=== PATIENT | female | born 1950 | race Hispanic/Latino ===

== ENCOUNTER → 2018-05-15 | Outpatient (CLI) | payer MEDICARE | END | disposition home or self-care (01) | LOC: OIH 10:56 | PROVIDERS: ATTEND Family Medicine | DX: M79.644 Pain in right finger(s) (principal) | CPT/HCPCS: 73130 ==

== ENCOUNTER → 2018-05-21 | Outpatient (CLI) | payer MEDICARE | END | disposition home or self-care (01) | LOC: RAH 09:40 | PROVIDERS: ATTEND Family Medicine | DX: R22.31 Localized swelling, mass and lump, right upper limb (principal) | CPT/HCPCS: 76882 ==

== ENCOUNTER → 2018-09-12 | Outpatient (CLI) | payer MEDICARE | END | disposition home or self-care (01) | LOC: RAH 08:59 | PROVIDERS: ATTEND Family Medicine | DX: M75.102 Unspecified rotator cuff tear or rupture of left shoulder, not specified as traumatic (principal); M25.412 Effusion, left shoulder; M19.012 Primary osteoarthritis, left shoulder | CPT/HCPCS: 73221 ==

== ENCOUNTER → 2020-04-05 | Outpatient (CLI) | payer MEDICARE | END | disposition home or self-care (01) | LOC: SHCH 10:17 | PROVIDERS: ATTEND Internal Medicine Cardiovascular Disease | DX: I87.2 Venous insufficiency (chronic) (peripheral) (principal); R60.9 Edema, unspecified | CPT/HCPCS: 93971 ==

== ENCOUNTER → 2020-06-20 | Outpatient (CLI) | payer MEDICARE | END | disposition home or self-care (01) | LOC: SHCH 14:02 | PROVIDERS: ATTEND Internal Medicine Cardiovascular Disease | DX: Z09 Encounter for follow-up examination after completed treatment for conditions other than malignant neoplasm (principal); I82.812 Embolism and thrombosis of superficial veins of left lower extremity; I87.2 Venous insufficiency (chronic) (peripheral) | CPT/HCPCS: 93971 ==

== ENCOUNTER → 2020-10-07 | Outpatient (CLI) | payer MEDICARE | END | disposition home or self-care (01) | LOC: RAH 10:44 | PROVIDERS: ATTEND Family Medicine | DX: K30 Functional dyspepsia (principal); R68.81 Early satiety; R14.0 Abdominal distension (gaseous) | CPT/HCPCS: 78264; A9541 ==

== ENCOUNTER → 2024-07-01 | Outpatient (CLI) | payer OTHER ==
--- NOTE | 2024-07-01 15:00 | HMCIMG ---
CHEST 2VWS HISTORY: Cough COMPARISON: None FINDINGS: Frontal and lateral projections of the chest were obtained. There is no acute pulmonary infiltrates or failure. The heart is not enlarged. Aortic calcifications are seen. Degenerative changes are seen of the thoracolumbar spine. IMPRESSION: 1. No acute pulmonary infiltrates.
== END | disposition home or self-care (01) ==
LOC: RAH 11:12
PROVIDERS: ATTEND Family Medicine
DX: R05.9 Cough, unspecified (principal); M47.815 Spondylosis without myelopathy or radiculopathy, thoracolumbar region; I70.0 Atherosclerosis of aorta
CPT/HCPCS: 71046

== ENCOUNTER 2025-05-21 06:45 | Day surgery (SDC) | payer OTHER, MEDICARE ==
[2025-05-19 13:47] LABS: IMMATURE GRANULOCYTE ABSOLUTE 0.04 K/uL (0-1); NUCLEATED RED BLOOD CELLS 0.0 % (0.0-0.19); PLATELET COUNT (AUTO) 243 K/uL (130-400); RED BLOOD CELL COUNT(AUTO) 3.89 MIL/uL (4.00-5.50); RED CELL DISTRIBUTION WIDTH 12.4 % (11.0-15.5); WHITE BLOOD COUNT (AUTO) 8.4 K/uL (4.8-10.8)
[2025-05-19 13:58] VITALS: BP 142/88; PULSE 98; RESP 16; TEMP 97.4
[2025-05-19 14:00] LABS: CREATININE 1.1 mg/dL (0.5-1.0); GLOMERULAR FILTR. RATE CALC 53.0 mL/min (>90); GLUCOSE,RANDOM 174.0 mg/dL (70-105); SODIUM SERUM 140.0 mmol/L (136-145); UREA NITROGEN, BLOOD 23.0 mg/dL (7-18)
[2025-05-19 14:07] LABS: INR 1.13 (0.85-1.15)
[2025-05-21] VITALS (9 sets, daily range): BP systolic 108–132; BP diastolic 56–77; PULSE 57–116; RESP 14–16; TEMP 97.7–97.8
[~2025-05-21] VITALS: Ht 157.5 cm; Wt 77.9 kg
[~2025-05-21 06:45] MED LIST: APIX5TAB PO; ATOR10 PO; GABA-529 PO; LEVO112C5 PO; LISI20TA24 PO; METF-446 PO; METO-408 PO; VENL-53 PO
[2025-05-21] MEDS ORDERED: MIDAZOLAM HCL 1 MG/ML 2ML VIAL IVP ONE (07:00)
--- NOTE | 2025-05-21 08:47 | NUR ---
PT SYNCHRONIZED CARDIOVERTED [address] MARY CANTU. PT DID CONVERT TO NSR.
--- NOTE | 2025-05-21 08:55 | NUR ---
PT AWAKE SPEAKING WITH STAFF VSS NAD
[2025-05-21] MEDS: MIDAZOLAM HCL 1 MG/ML 2ML VIAL IVP ONE ×2 (09:01)
--- NOTE | 2025-05-21 09:02 | PRN ---
Procedure Note INDICATION FOR PROCEDURE: [] Hypercoagulable state Symptomatic atrial fibrillation with rapid ventricular response PROCEDURE: [] Conscious sedation Direct current cardioversion x1 at 150 joules synchronized DATE OF PROCEDURE: May 21, 2025 MANAGER SECURITY AND SAFETY: Mehul Ritter.A.CJasbirCJasbir PROCEDURE NOTE: [] After adequate sedation was given to include 3 mg of Versed and 75 mcg of fentanyl synchronized direct current cardioversion was performed with 150 joules of synchronized electricity which was successful. Patient was shocked 1 time and sinus rhythm was restored. FINDINGS: [] Successful direct current cardioversion Mormon and maintenance of normal sinus rhythm PLAN: [] Continue with Toprol-XL 25 mg twice daily Continue with Eliquis 5 mg twice daily for a minimum of 4 weeks Follow up with Dr. Fierro in 1-2 weeks No driving or operating heavy machinery for 24 hours MEHUL FIERRO MD May 21, 2025 09:02
--- NOTE | 2025-05-21 09:06 | EKG ---
[facility] Test Date: 2025-05-21 Test Time: 08:50:30 Pat Name: LIBRA DE LA CRUZ Department: [facility] Room: [facility] Gender: F Engineering Project Manager: [phone] : 1950 Requested By: MEHUL FIERRO Order Number: [id number] Reading MD: Mehul Fierro Measurements Intervals [place] Rate: 59 P: 68 TX: 170 QRS: 69 QRSD: 84 T: 47 QT: 414 QTc: 409 Interpretive Statements Sinus bradycardia with premature atrial complexes No previous ECG available for comparison Electronically Signed On 05-21-2025 11:28:54 MORTISING MACHINE OPERATOR by Mehul Fierro Please click the below link to view image of tracing.
--- NOTE | 2025-05-21 10:25 | NUR ---
PT AND CHILDREN GIVEN VERBAL AND WRITTEN DISCHARGE INSTRUCTIONS IV REMOVED SITE ASYMPTOMATIC.
--- NOTE | 2025-05-21 18:44 | EKG ---
[facility] Test Date: 2025-05-21 Test Time: 07:03:10 Pat Name: LIBRA DE LA CRUZ Department: [facility] Room: Gender: F Order Management Specialist: [id number] : 1950 Requested By: MEHUL FIERRO Order Number: [id number] Reading MD: Mehul Fierro Measurements Intervals [place] Rate: 129 P: 0 MI: 0 QRS: 76 QRSD: 82 T: 12 QT: 316 QTc: 462 Interpretive Statements Atrial fibrillation with rapid ventricular response with premature ventricular or aberrantly conducted complexes Low voltage QRS Nonspecific ST abnormality No previous ECG available for comparison Electronically Signed On 05-23-2025 09:27:58 PROCESS TRAINER by Mehul Fierro Please click the below link to view image of tracing.
== END 2025-05-21 10:35 | disposition home or self-care (01) ==
LOC: DAH 06:45
PROVIDERS: ATTEND Internal Medicine Cardiovascular Disease
DX: I48.0 Paroxysmal atrial fibrillation (principal); I48.19 Other persistent atrial fibrillation; I10 Essential (primary) hypertension; E11.9 Type 2 diabetes mellitus without complications; E78.5 Hyperlipidemia, unspecified; F41.9 Anxiety disorder, unspecified; F32.A Depression, unspecified; E03.9 Hypothyroidism, unspecified; I87.2 Venous insufficiency (chronic) (peripheral); I87.1 Compression of vein; Z79.01 Long term (current) use of anticoagulants; Z90.49 Acquired absence of other specified parts of digestive tract; Z79.899 Other long term (current) drug therapy
CPT/HCPCS: 80048; 85025; 85610; 85730; 36415; 92960; 99152; 93005 ×2; J3010; J2250 ×2; A4215; A4222; A4221; A4663; A4216; A4606; A4223 ×3; G0500

== ENCOUNTER 2025-05-24 12:49 | Inpatient (IN) | payer OTHER, MEDICARE ==
[2025-05-24] VITALS (10 sets, daily range): BP systolic 134–156; BP diastolic 79–89; PULSE 72–114; RESP 18–38; TEMP 98.1–98.8; O2SAT 98–100
[~2025-05-24] VITALS: Ht 157.5 cm; Wt 76.7 kg
--- NOTE | 2025-05-24 13:00 | ERN ---
ED Note History of Present Illness Stated Complaint: CHEST PAIN PHYSICIAN ADVISOR TO ED Chief Complaint: Chest Pain Time Seen by MD: 12:58 Dictation: PATIENT IS A 74-YEAR-OLD FEMALE COMING IN VIA EMS WITH COMPLAINTS OF SUBSTERNAL CHEST PAIN NONRADIATING ONSET WAS 1 HOUR PRIOR TO ARRIVAL. SHE HAS HAD NO FEVER NO PILL SHE HAS A SAYS SHE HAS A SHORT OF BREATH AND WAS JUST DISCHARGED FROM [facility] FOR ATRIAL FIBRILLATION WITH A RVR. SHE IS CURRENTLY MILDLY TACHYPNEIC FEVER 100.2. EMS STATES THEY GAVE HER ASPIRIN AND NITRO H OWEVER PAIN WAS NOT RESOLVED. Allergies: Coded Allergies: No Known Drug Allergies (Unverified Allergy, Unknown, 05/20/25) Home Meds Reported Medications Levothyroxine Sodium (Levothyroxine) 112 Mcg Capsule, 112 MCG PO ACBKFST, CAP 05/20/25 Venlafaxine HCl (Venlafaxine HCl) 37.5 Mg Tablet, 37.5 MG PO HS, TAB 05/20/25 Gabapentin (Gabapentin) 100 Mg Capsule, 100 MG PO HS, CAP 05/20/25 Lisinopril (Lisinopril) 20 Mg Tablet, 20 MG PO DAILY, TAB 05/20/25 Metformin HCl (Metformin HCl) 1,000 Mg Tablet, 1000 MG PO BID, TAB 05/20/25 Metoprolol Succinate (Metoprolol Succinate) 25 Mg Tab.er.24h, 25 MG PO BID, TAB 05/20/25 Atorvastatin Calcium (LIPITOR) 20 Mg Tab, 20 MG PO DAILY, TAB 05/20/25 Apixaban (Eliquis) 5 Mg Tablet, 5 MG PO BID, TAB 05/20/25 Past Medical History History: Not Applicable RN Note Reviewed/Agreed w/PFSH: Yes Review of System Dictation CONSTITUTIONAL: NEGATIVE EXCEPT FOR HPI HEAD/FACE: NEGATIVE EXCEPT FOR HPI EENT: NEGATIVE EXCEPT FOR HPI RESPIRATORY: NEGATIVE EXCEPT FOR HPI SUBSTERNAL CHEST PAIN PRESSURE GASTROINTESTINAL/ABDOMINAL: NEGATIVE EXCEPT FOR HPI GENITOURINARY: NEGATIVE EXCEPT FOR HPI MUSCULOSKELETAL: NEGATIVE EXCEPT FOR HPI INTEGUMENTARY: NEGATIVE EXCEPT FOR HPI NEUROLOGICAL/PSYCH: NEGATIVE EXCEPT FOR HPI HEMATOLOGIC/LYMPHATIC: NEGATIVE EXCEPT FOR HPI ALL SYSTEMS NEGATIVE, EXCEPT NOTED ABOVE. 13 POINT REVIEW OF SYSTEMS ASSESSED AND ALL NEGATIVE EXCEPT FOR ABOVE. Initial Vital Sign VS Vital Signs Date Time Temp Pulse Resp B/P (MAP) Pulse Ox O2 Delivery O2 Flow Rate FiO2 05/24/25 12:54 100.2 71 24 126/78 98 Nasal Cannula 2.0 05/24/25 13:25 28 Physical Exam Dictation VITAL SIGNS REVIEWED GENERAL APPEARANCE: ALERT, ORIENTED X 3, NO ACUTE DISTRESS, WELL DEVELOPED, NOURISHED. NO PAIN AT THIS TIME. HEAD AND FACE: NON-TRAUMATIC. EYES: PERRL, PINK CONJUNCTIVAS, EYELID NO TRAUMA, ANTERIOR CHAMBER WITH ARCUS SENILIS. EARS: PINNAS INTACT AND NO SIGNS OF TRAUMA OR ERYTHEMA EAR CANALS CLEAR AND NO DISCHARGE TM NO ERYTHEMA NOSE: NO DISCHARGE, NO BLEEDING. OROPHARYNX: MOUTH NORMAL, TONGUE PINK, PHARYNX CLEAR,NO ERYTHEMA, TONSILS NO EXUDATES, NO ABSCESSES NOTED, MUCOUS MEMBRANE MOIST NECK: SUPPLE, NON-TENDER, NO THYROMEGALY, NO MASSES, NO JVD, NO BRUITS BREAST:DEFERRED CHEST:NO TENDERNESS, NO CREPITUS, NO PARADOXICAL MOVEMENT, NO RETRACTIONS LUNGS:CLEAR, WELL-VENTILATED, SYMMETRIC, NO RALES, NO WHEEZING, NO RHONCHI, NO STRIDOR, GOOD BREATH SOUNDS BILATERALLY HEART: REGULAR RATE, REGULAR RHYTHM, NO MURMUR, NO GALLOPS VASCULAR: NO PERIPHERAL EDEMA, ABDOMEN: SOFT, POSITIVE BOWEL SOUNDS, NONDISTENDED, NO GUARDING, NONTENDER, NO REBOUND, NO MASSES NO HEPATOMEGALY, NO SPLENOMEGALY, NO DAVIES'S SIGN, NO HERNIAS. RECTAL: DEFERRED GENITAL: DEFERRED NEUROLOGICAL: NORMAL SPEECH, MOTOR FUNCTION INTACT, SENSORY FUNCTION INTACT MUSCULOSKELETAL: NECK NONTENDER, FULL RANGE OF MOTION, BACK NONTENDER, FULL RANGE OF MOTION, EXTREMITIES: NONTENDER, FULL RANGE OF MOTION SKIN: COLOR PINK, DRY, NO TURGOR, NO RASH, NO LACERATIONS, NO ABRASIONS, NO CONTUSIONS. LYMPHATIC: DEFERRED Results (Laboratory/Radiology) Laboratory/Radiology Laboratory Tests Test 05/24/25 13:06 05/24/25 13:19 White Blood Count 10.4 K/uL (4.8-10.8) Red Blood Count 3.53 MIL/uL (4.00-5.50) L Hemoglobin 10.4 g/dL (12.0-16.0) L Hematocrit 30.9 % (36-48) L Mean Corpuscular Volume 87.5 fL (79-99) Mean Corpuscular Hemoglobin 29.5 pg (27.0-33.0) Mean Corpuscular Hemoglobin Concent 33.7 g/dL (32.0-36.0) Red Cell Distribution Width 12.1 % (11.0-15.5) Platelet Count 208 K/uL (130-400) Mean Platelet Volume 11.1 fL (7.5-10.5) H Immature Granulocyte % (Auto) 0.3 % (0-1) Neutrophils (%) (Auto) 77.7 % (40.0-77.0) H Lymphocytes (%) (Auto) 15.1 % (21.0-51.0) L Monocytes (%) (Auto) 6.0 % (3.0-13.0) Eosinophils (%) (Auto) 0.4 % (0.0-8.0) Basophils (%) (Auto) 0.5 % (0.0-5.0) Neutrophils # (Auto) 8.1 K/uL (1.8-7.7) H Lymphocytes # (Auto) 1.6 K/uL (1.0-4.8) Monocytes # (Auto) 0.6 K/uL (0.1-1.0) Eosinophils # (Auto) 0.04 K/uL (0.00-0.70) Basophils # (Auto) 0.05 K/uL (0.00-0.20) Absolute Immature Granulocyte (auto 0.03 K/uL (0-1) Nucleated Red Blood Cells 0.0 % (0.0-0.19) Sodium Level 136 mmol/L (136-145) Potassium Level 4.1 mmol/L (3.5-5.1) Chloride Level 100 mmol/L (101-111) L Carbon Dioxide Level 26 mmol/L (21-32) Blood Urea Nitrogen 17 mg/dL (7-18) Creatinine 1.1 mg/dL (0.5-1.0) H Glomerular Filtration Rate Calc 53 mL/min (>90) Random Glucose 278 mg/dL (70-105) H Lactic Acid Level 1.8 mmol/L (0.8-2.5) Total Calcium 8.4 mg/dL (8.5-10.1) L Total Bilirubin 0.6 mg/dL (0.2-1.0) Direct Bilirubin 0.2 mg/dL (0.0-0.3) Aspartate Amino Transf (AST/SGOT) 20 U/L (10-37) Alanine Aminotransferase (ALT/SGPT) 32 U/L (12-78) Alkaline Phosphatase 111 U/L (50-136) Troponin I High Sensitivity 728 ng/L (4-50) *H B-Type Natriuretic Peptide 293 pg/mL (0-100) H Total Protein 6.4 g/dL (6.0-8.3) Albumin 3.1 g/dL (3.5-5.0) L SARS-CoV-2 Antigen (Rapid) PRESUMPTIVE NEGATIVE 1415/CHEST X-RAY DEMONSTRATES A RIGHT LOWER LOBE INFILTRATE. BLOOD CULTURES AND LACTIC ACID BEEN DRAWN. WE WILL INITIATE ROCEPHIN AND AZITHROMYCIN. Labs Reviewed?: Yes EKG Comment: 1333/SINUS RHYTHM/HEART RATE 68/AXIS NORMAL T-WAVE INVERSION IN LATERAL LEADS V1 V2 V3 V4 V5 ED Course ED Course Orders Procedure Category Date Status Time B-Type Natriuretic LAB 05/24/25 Complete Peptide 12:54 12 Lead Ekg Tracing- EKG 05/24/25 Complete Technical 12:54 Basic Metabolic Panel LAB 05/24/25 Complete 12:54 Cbc With Differential LAB 05/24/25 Complete 12:54 Hepatic Function Panel LAB 05/24/25 Complete 12:54 Troponin I High LAB 05/24/25 Complete Sensitivity 12:54 Chest 1vw RAD 05/24/25 Taken 12:54 Covid19 (Sars Antigen LAB 05/24/25 Complete Rapid) 12:59 Blood Cult DESTINI 05/24/25 In Process 12:59 Lactic Acid LAB 05/24/25 Complete 12:59 Initiate Heparin MIKAELA 05/24/25 In Process Treatment Pro 14:09 Heparin 5,000 Unit PHA 05/24/25 In Process Vial (Heparin 5,000 U 15:00 Heparin 25,000 PHA 05/24/25 In Process Units/250ml D5w 15:00 Heparin Protocol CPOE 05/24/25 Transmitted Monitoring 14:09 Oxygen By Nc/Pulse Ox CPOE 05/24/25 Transmitted 14:13 Ceftriaxone 2gm Vial PHA 05/24/25 In Process (Rocephin 2gm Inj) 14:30 Azithromycin 500mg+Ns PHA 05/24/25 In Process 250ml (Azithromyci 14:16 Cardiology Consult CONPHYSVC 05/24/25 Transmitted 14:18 Edm Admit Bridge Order ADM 05/24/25 Transmitted 14:21 Current Medications Medications (Trade) Dose Ordered Sig/Kristina Route PRN Reason Start Time Stop Time Status Last Admin Dose Admin Azithromycin 250 ml @ 250 mls/hr ONCE STAT IVPB 05/24/25 14:16 05/24/25 15:15 Ceftriaxone Sodium (Rocephin 2gm Inj) 2 gm ONCE ONCE IVPB 05/24/25 14:30 05/24/25 14:31 Heparin Sodium (Porcine) (HEParin 5,000 UNIT VIAL) *calculation based on ACTUAL B... AD PRN IV HEPARIN PROTOCOL 05/24/25 15:00 06/23/25 14:59 Heparin Sodium/ Dextrose 250 ml @ 0 mls/hr Q6H IV 05/24/25 15:00 06/23/25 14:59 Vital Signs Date Time Temp Pulse Resp B/P (MAP) Pulse Ox O2 Delivery O2 Flow Rate FiO2 05/24/25 13:25 98.4 70 16 120/65 98 Nasal Cannula* 2 28 05/24/25 12:54 100.2 71 24 126/78 98 Nasal Cannula 2.0 1410/REVIEW OF RECORDS DEMONSTRATES PATIENT HAD CARDIO CONVERSION BY DR. MADELEINE HERNANDEZ 05/25/2025 FOR AFIB WITH A RVR. FOURTEEN 10, SPOKE TO PATIENT AND SON AT BEDSIDE AT LENGTH. SHE HAS HAD NO CARDIAC PROCEDURES AND THEN CARDIOVERSION FOR ATRIAL FIBRILLATION. NO STENTS NO BYPASSES. SHE SAID SHE HAS HAD NO CHEST PAIN OTHER THAN WHEN SHE HAD THE CARDIOVERSION DONE ON 05/25/2025. SHE IS AWARE SHE WOULD BE ADMITTED TO THE HOSPITAL. ADDITIONALLY WE WILL INITIATE HEPARIN DRIP FOR T-WAVE INVERSION IN ISCHEMIA. ASPIRIN 325 WAS ADMINISTERED BY EMS. 1425/SPOKE WITH TERE FROM [facility] AND REVIEWED EKG LABS INTERVENTIONS FOR ACS TO INCLUDE HEPARIN AND INTERVENTIONS FOR RIGHT LOWER LOBE PNEUMONIA WITH BLOOD CULTURES LACTIC ACID AND ANTIBIOTICS. HE AGREED TO ADMIT PATIENT. HEART Score Response (Comments) Value History: High suspicion (+2) 2 EKG: Repolarization changes 1 Age: > 65yrs (+2) 2 Risk Factors: 1-2 risk factors (+1) 1 Initial Troponin: >3x Normal Limit (+2) 2 Total 8 Medical Decision Making MDM MDM: DIFFERENTIAL DIAGNOSIS: ACS/AMI/ELECTROLYTE IMBALANCE/DEHYDRATION/ PNEUMONIA/BRONCHITIS SARS COVID RATIONALE: TESTS CONSIDERED AND ORDERED SECONDARY TO SHARED DECISION MAKING INCLUDE: LABS, ECG AND RADIOLOGY PREVIOUS OUTSIDE RECORDS REVIEWED: OLD ER VISITS. RISK OF COMPLICATION AND/OR MORBIDITY OR MORTALITY OF PATIENT MANAGEMENT: MODERATE. MEDICATIONS-PER MEDICATION RECONCILIATION NEED FOR HOSPITALIZATION: PATIENT DOES MEET CRITERIA FOR HOSPITALIZATION. BE ADMITTED PLACED ON HEPARIN DRIP, SHE HAS ALREADY HAD ASPIRIN 325 WITH NITRO. NO PAIN AT THIS TIME. CARDIOLOGY WILL BE CONSULTED. NEED FOR EMERGENCY MAJOR/MINOR SURGERY: NO THERE ARE NO SOCIAL CONCERNS WITH THIS PATIENT. PRESCRIPTION DRUG MANAGEMENT PRESCRIPTIONS WILL INCLUDE SYMPTOMATIC CARE PATIENT'S PRIOR EXTERNAL MEDICAL RECORDS FROM OTHER ER VISITS WERE REVIEWED BY ME INDICATED. PRIOR TESTING AND RESULTS FROM PREVIOUS VISITS WERE REVIEWED. PRIOR TESTS WERE TAKEN INTO ACCOUNT WITH MEDICAL DECISION MAKING AND RESOURCE UTILIZATION, INDEPENDENT HISTORIAN/HISTORIANS WERE USED TO OBTAIN COMPLETE MEDICAL HISTORY. I INDEPENDENTLY INTERPRETED THE TEST THAT WERE PERFORMED, RESULTS WERE REVIEWED BY ME AND CONSIDERED FINDINGS ON RADIOLOGY IF ORDERED. MEDICAL MANAGEMENT AND EXAMINATION INTERPRETATION DISCUSSIONS WERE HAD BY ME WITH OTHER QUALIFIED HEALTHCARE PROFESSIONALS INDICATED FOR THE PATIENT'S CARE. DX & DISP Disposition: Inpatient Decision to Admit Time: 14:13 Departure Impression: Primary Impression: Acute coronary syndrome Additional Impressions: Stage 3 chronic kidney disease, Anemia of chronic renal failure, stage 3b, Hypochloremia, Uncontrolled diabetes mellitus, Hypokalemia, Right lower lobe pneumonia Condition: Stable Referrals: MARISA LUNA MD (PCP) MIGUEL FELIZ May 24, 2025 13:00
[2025-05-24 13:14] LABS: IMMATURE GRANULOCYTE ABSOLUTE 0.03 K/uL (0-1); NUCLEATED RED BLOOD CELLS 0.0 % (0.0-0.19); PLATELET COUNT (AUTO) 208 K/uL (130-400); RED BLOOD CELL COUNT(AUTO) 3.53 MIL/uL (4.00-5.50); RED CELL DISTRIBUTION WIDTH 12.1 % (11.0-15.5); WHITE BLOOD COUNT (AUTO) 10.4 K/uL (4.8-10.8)
[2025-05-24 13:44] LABS: ASPARTATE AMINOTRANSFERASE 20.0 U/L (10-37); CREATININE 1.1 mg/dL (0.5-1.0); GLOMERULAR FILTR. RATE CALC 53.0 mL/min (>90); GLUCOSE,RANDOM 278.0 mg/dL (70-105); SODIUM SERUM 136.0 mmol/L (136-145); TOTAL PROTEIN, SERUM 6.4 g/dL (6.0-8.3); UREA NITROGEN, BLOOD 17.0 mg/dL (7-18)
--- NOTE | 2025-05-24 13:51 | EKG ---
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: [id number] : 1950 Requested By: ELLIE MAHMOOD Order Number: [id number] Reading MD: Caden Burch Measurements Intervals [place] Rate: 68 P: 19 AR: 155 QRS: 111 QRSD: 83 T: 136 QT: 441 QTc: 468 Interpretive Statements Sinus rhythm Low voltage, extremity leads Abnormal T, consider ischemia, lateral leads Compared to ECG 05/21/2025 08:50:30 Low QRS voltage now present T-wave abnormality now present Possible ischemia now present Sinus bradycardia no longer present Atrial premature complex(es) no longer present Electronically Signed On 05-26-2025 11:50:01 REAL ESTATE LOAN OFFICER by Caden Burch Please click the below link to view image of tracing.
[2025-05-24] MEDS ORDERED: MAG/ALUM/SIMETH 30 ML UDCUP PO PRN (14:30)
[2025-05-24] MEDS: DOXYCYCLINE 100MG+NS 250ML 250 ML IV SCH (14:30)
[2025-05-24] MEDS ORDERED: ARTIFICAL TEARS SOL 15 ML OP PRN (14:30)
[2025-05-24] MEDS ORDERED: NITROGLYCERIN 0.4 MG SL TAB SL PRN (14:30)
[2025-05-24] MEDS ORDERED: LOPERAMIDE HCL 2 MG CAP PO PRN (14:30)
[2025-05-24] MEDS ORDERED: LACTULOSE 20 GM/30 ML UDCUP PO PRN (14:30)
--- NOTE | 2025-05-24 14:54 | HMCIMG ---
EXAM: CR Chest, 1 View. CLINICAL HISTORY: cp COMPARISON: None provided. FINDINGS: Bilateral perihilar bibasilar airspace disease may reflect pulmonary edema. No pleural effusion or pneumothorax. Mild cardiomegaly and pulmonary vascular congestion. IMPRESSION: 1. Bilateral perihilar and bibasilar airspace disease, possibly reflecting pulmonary edema, with mild cardiomegaly and pulmonary vascular congestion. 2. No pleural effusion or pneumothorax. /[place]
[2025-05-24] MEDS: ZOSYN 3.375GM +NS 50ML IV SCH (14:59)
[2025-05-24] MEDS: AZITHROMYCIN 500MG+NS 250ML 250 ML IVPB STA (15:14)
--- NOTE | 2025-05-24 15:17 | NUR ---
AWAITING PTT RESULTS TO START HEPARIN DRIP
[2025-05-24 15:36] LABS: INFLUENZA TYPE A Negative For Type A (NEGATIVE); INFLUENZA TYPE B Negative For Type B (NEGATIVE)
[2025-05-24 15:45] LABS: INR 1.19 (0.85-1.15)
[2025-05-24 15:49] LABS: CREATINE KINASE, TOTAL 44.0 U/L (21-232)
--- NOTE | 2025-05-24 16:08 | NUR ---
DCP:HOME Pt currently lives alone in her home. Pt does not have any DME at home. Pt has a provider that goes to her home 25.5 hrs a week to assist with ADLs, home management, and meals. PCP is Dr. Gavin Guerra and uses [facility] for any RX needs. At DC pt will want to go home and family can assist with transportation.
--- NOTE | 2025-05-24 16:10 | NUR ---
2 D ECHO: TECH CURRENTLY AT BEDSIDE PERFORMING EXAM ON PT.
--- NOTE | 2025-05-24 16:21 | NUR ---
BENCHMARK: FILIBERTO NOTCHER WAS INFORMED OF +D DIMER AND INCREASED TROP. REFER TO ORDERS. BRYCE MAYFIELD INFORMED.
--- NOTE | 2025-05-24 16:38 | NUR ---
DOCTOR DOV BUSY IN STEMI
--- NOTE | 2025-05-24 17:01 | NUR ---
REPORT GIVEN TO YARITZA BACH, PENDING LAB RESULTS AND CONSULT WITH DOCTOR MONAE
--- NOTE | 2025-05-24 18:31 | HP ---
[facility] HISTORY & PHYSICAL Date Patient Seen: May 24, 2025 Time of Visit: 17:52 Supervising Physician: [DR DUMAS Primary Care Physician: [ ] Outpatient Specialists: [ ] Inpatient Consults: [Dr Fierro PROBLEM LIST: NSTEMI AHRF 2/2 Pulmonary Edema Community Acquired Pneumonia CKD ST 2 GFR 53ML/MIN Anemia of chronic disease Type 2 DM w Hyperglycemia Essential Hypertension Hyperlipidemia HX of A-Fib- on Eliquis - recent cardioversion 05-21-25 (Dr Fierro) Hypothyroidism HPI: Mrs. Lori Villareal is a 74 YEAR OLD FEMALE WITH A PAST MEDICAL HISTORY of diabetes, hypertension, hyperlipidemia, CKD, AFib with a recent cardioversion last Saturday at Dr. Fierro's office presents to the emergency room with a chief complaint of fevers, chills, or general body weakness with an onset of this morning. Patient reports she woke up this morning and felt very weak and ill. She reports she went up to go to the bathroom and she was having a difficult time holding herself up. She notified her family and they brought her in for further evaluation. Patient reports she was seen by her vehicle dismantler last Saturday at her clinic and had a cardioversion performed due to uncontrolled AFib. Patient continues taking her Eliquis as prescribed. Patient denies fevers however reports chills, shortness for breath. Patient denies chest pain, nausea, vomiting, abdominal pain. Admission vital signs are temperature 100.2 C, heart rate 71 beats per minute, respiratory rate 20 4 beats per minute, blood pressure 126/78, O2 sat 98% on 2 L nasal cannula. Admission labs show anemia of chronic disease an H&H of 10.4/30.9, elevated creatinine of 1.1 with GFR of 53 mL/minute, elevated troponin of 728, 12 lead EKG shows an abnormal T-wave, consider ischemia. Chest x-ray shows infiltrates as well as pulmonary edema. Patient will be admitted for non-STEMI, community-acquired pneumonia, acute hypoxemic respiratory failure secondary to pulmonary edema. PAST MEDICAL HX: see above PAST SURGICAL HX: noncontributory SOCIAL HISTORY: No tobacco, ETOH, or illicit drug use Coded Allergies: No Known Drug Allergies (Unverified Allergy, Unknown, 05/20/25) REVIEW OF SYSTEMS: 12 point ROS reviewed with patient. Pertinent positives mentioned above. Oth erwise negative. PHYSICAL EXAM: GENERAL: alert, weak, awake oriented x 3 HEENT: EOMI, Sclera non icteric, moist mucosa NECK: Supple, no JVD, trachea midline LUNGS: Clear breath sounds bilaterally. No wheezes HEART: Regular rate and rhythm. Normal S1 and S2, without murmurs ABD: Abdomen soft, nontender. Bowel sounds present EXT: No clubbing cyanosis or edema NEURO: Alert and oriented to person, follows commands Vital Signs (last 8hr) Date Time Temp Pulse Resp B/P (MAP) Pulse Ox O2 Delivery O2 Flow Rate FiO2 05/24/25 16:45 98.2 75 20 134/79 100 Nasal Cannula 2.0 05/24/25 16:13 72 18 N/Cannula Low lpm 2.0 28 05/24/25 15:11 98.4 66 16 128/73 99 Nasal Cannula* 2.0 N/A 05/24/25 13:25 98.4 70 16 120/65 98 Nasal Cannula* 2 28 05/24/25 12:54 100.2 71 24 126/78 98 Nasal Cannula 2.0 LABS: Hematology Labs: Test 05/24/25 13:06 Range/Units White Blood Count 10.4 4.8-10.8 K/uL Red Blood Count 3.53 L 4.00-5.50 MIL/uL Hemoglobin 10.4 L 12.0-16.0 g/dL Hematocrit 30.9 L 36-48 % Mean Corpuscular Volume 87.5 79-99 fL Mean Corpuscular Hemoglobin 29.5 27.0-33.0 pg Mean Corpuscular Hemoglobin Concent 33.7 32.0-36.0 g/dL Red Cell Distribution Width 12.1 11.0-15.5 % Platelet Count 208 130-400 K/uL Mean Platelet Volume 11.1 H 7.5-10.5 fL Immature Granulocyte % (Auto) 0.3 0-1 % Neutrophils (%) (Auto) 77.7 H 40.0-77.0 % Lymphocytes (%) (Auto) 15.1 L 21.0-51.0 % Monocytes (%) (Auto) 6.0 3.0-13.0 % Eosinophils (%) (Auto) 0.4 0.0-8.0 % Basophils (%) (Auto) 0.5 0.0-5.0 % Neutrophils # (Auto) 8.1 H 1.8-7.7 K/uL Lymphocytes # (Auto) 1.6 1.0-4.8 K/uL Monocytes # (Auto) 0.6 0.1-1.0 K/uL Eosinophils # (Auto) 0.04 0.00-0.70 K/uL Basophils # (Auto) 0.05 0.00-0.20 K/uL Absolute Immature Granulocyte (auto 0.03 0-1 K/uL Nucleated Red Blood Cells 0.0 0.0-0.19 % Chemistry Labs: Test 05/24/25 15:15 05/24/25 13:06 Range/Units Total Creatine Kinase 44 21-232 U/L Troponin I High Sensitivity 1290.1 *H 4-50 ng/L Procalcitonin < 0.05 L 0.05-0.5 ng/mL Sodium Level 136 136-145 mmol/L Potassium Level 4.1 3.5-5.1 mmol/L Chloride Level 100 L 101-111 mmol/L Carbon Dioxide Level 26 21-32 mmol/L Blood Urea Nitrogen 17 7-18 mg/dL Creatinine 1.1 H 0.5-1.0 mg/dL Glomerular Filtration Rate Calc 53 >90 mL/min Random Glucose 278 H 70-105 mg/dL Lactic Acid Level 1.8 0.8-2.5 mmol/L Total Calcium 8.4 L 8.5-10.1 mg/dL Total Bilirubin 0.6 0.2-1.0 mg/dL Direct Bilirubin 0.2 0.0-0.3 mg/dL Aspartate Amino Transf (AST/SGOT) 20 10-37 U/L Alanine Aminotransferase (ALT/SGPT) 32 12-78 U/L Alkaline Phosphatase 111 50-136 U/L B-Type Natriuretic Peptide 293 H 0-100 pg/mL Total Protein 6.4 6.0-8.3 g/dL Albumin 3.1 L 3.5-5.0 g/dL Coagulation Labs: Test 05/24/25 15:15 Range/Units Prothrombin Time 12.4 H 9.6-11.6 SEC Prothromb Time International Ratio 1.19 H 0.85-1.15 Activated Partial Thromboplast Time 29.3 26.3-35.5 SEC D-Dimer Quantitative (PE/DVT) 692 *H 0-500 ng/mL DIAGNOSTICS / RADIOLOGY RESULTS: [ ] PLAN Admit to PCCU Telemetry monitoring Supplemental oxygen as needed Wean off as tolerated Trend troponins x3 Twelve lead EKG x3 Aspirin 325 mg x 1 then 81 mg daily Statin 40 mg q hs Plavix 75 mg daily Metoprolol Lisinopril Heparin drip Obtain 2D echo Consult cardiology Zosyn 3.375 GM IV Q 8 HOURS Doxycycline 100 MG IV Q 12 Glucometer checks AC/HS w/ regular insulin SS Obtain A1C Resume levothyroxine Obtain TSH Protonix 40 mg daily for PUD prophylaxis DVT Prophylaxia - pt on heparin drip Repeat am Labs NEURO: Minimize central acting medications as possible. Maintain fall precautions, adequate lighting during the day PULMONARY: Supplemental 02 as needed. Maintain aspiration precautions at all times CARDIOVASCULAR: Follow hemodynamics. Vital signs per facility protocol GI & NUTRITION: Continue with nutritional support. Continue stool softeners and laxatives as needed. KIDNEYS & ELECTROLYTES: Strict monitoring of intake, output and overall fluid balance. Avoid nephrotoxic medications to the extent possible. Medications to be dosed according to renal function. Monitor electrolytes and replace as needed ENDOCRINE: Maintain blood glucose between 100-180 at all times. Hypoglycemia protocol in place INFECTIOUS DISEASE: Trend temperature, WBC and procalcitonin level Follow cultures, deescalate antibiotics as soon as possible. Panculture if new onset fever ONCOLOGY/HEMATOLOGY/COAGULATION: Monitor for s/s of bleeding Monitor hemoglobin, coagulation studies as needed SKIN: Pressure ulcer prevention per facility protocol Specialty mattress ORTHO/REHAB: Continue PT/OT Prophylaxis: Continue GI and DVT prophylaxis Code Status: Full Resuscitation Disposition: TBD ATTESTATION BY PHYSICIAN I have evaluated the patient chart, medical records, and spoke with appropriate staff. I reviewed the documentation, medical decision making, and treatment plan as noted by the mid-level provider above. I agree with the findings and plan of care. Eddie Dumas MD, ECTOR N HYDROTEL OPERATOR May 24, 2025 18:31
[2025-05-24 18:54] LABS: LDL DIRECT 66 mg/dL (0-99)
[2025-05-24] MEDS ORDERED: IOHEXOL-350 50ML VIAL IV ONE (20:00)
--- NOTE | 2025-05-24 21:06 | HMCSR ---
APPROVED REPORT EXAM: Two-dimensional and M-mode echocardiogram with Doppler and color Doppler. INDICATION ICD: Non ST-elevation FL I21.4 2D Dimensions RVDd 3.2 cm LVEF(%) 22.0 (>50%) LVED Vol(simp.) 112.0 mL IVSd 0.9 (0.7-1.1cm) FS(%) 10 % LVES Vol(simp.) 75.0 mL LVDd 4.5 (3.8-5.6cm) LA (2D) 4.9 (1.6-4.0cm) LVEF(%, simp.) 34 % PWd 1.1 (0.7-1.1cm) Ao Root(2D) 3.1 (2.0-3.7cm) LA ESV INDEX (BP) 35.37 mL/m2 IVSs 0.9 cm LVOT diam 2.0 (1.8-2.4cm) LVDs 4.0 (2.5-4.0cm) IVC diam 2.2 cm PWs 1.3 cm Deformation Strain Apical 4 -5.2 % Apical 2 -7.8 % Apical 3 -4.4 % Global Strain -5.8 % M-Mode Dimensions EPSS 1.0 cm LA (MM) 5.2 (1.6-4.0cm) Ao Root(MM) 3.0 (2.0-3.7cm) Aortic Valve AoV Vmax 1.2 m/s Ao Peak GR 5.6 mmHg LVOT Vmax 0.8 m/s AoV VTI 0.2 m Ao Mean GR 2.9 mmHg LVOT VTI 0.14 m FAVIO (VMAX) 2.20 cm2 Al P1/2T 522 ms FAVIO (VTI) 2.5 cm2 Mitral Valve MV E Vmax 96.0 cm/s DECEL Time 146 ms MV A Vmax 28.6 cm/s P 1/2 T 47 ms E/A ratio 3.4 MVA (PHT) 4.6 cm2 TDI E/E' Medial 20.6 E/E' Lateral 20.6 Medial E' Peak V 4.65 cm/s Lateral E' Peak V 4.65 cm/s Pulmonary Valve PV Vmax 0.7 m/s PV Mean GR 1.3 mmHg PV Peak GR 1.9 mmHg Tricuspid Valve TR Vmax 3.0 m/s RAP (EST) 15 mmHg RVSP 50.3 mmHg TR Peak GR 35.3 mmHg Left Ventricle The left ventricle is mildly dilated. Severely reduced GLS -6.0%. Anteroapical, apical septal, and apical akinesis. There is normal left ventricular wall thickness. LVEF is 25-30%. Stage III diastolic dysfunction. Right Ventricle The right ventricle is normal size. Right ventricular systolic function is mildly to moderately reduced. Atria The left atrium is moderately dilated. The right atrium size is normal. Aortic Valve The aortic valve is trileaflet normal in structure. Mild aortic regurgitation is present. There is no aortic valvular stenosis. Mitral Valve The mitral valve is normal in structure. There is mild mitral valve regurgitation noted. There is no mitral valve stenosis. Tricuspid Valve The tricuspid valve is normal in structure. There is mild tricuspid valve regurgitation noted. RVSP 50 mmHg. Pulmonic Valve The pulmonary valve is normal in structure. There is no pulmonic valvular regurgitation. Great Vessels The aortic root is normal in size. IVC is dilated and collapses <50% with inspiration. Pericardium There is trace of pericardial effusion. Other Information Quality : Adequate Conclusion The left ventricle is mildly dilated. There is normal left ventricular wall thickness. Severely reduced GLS -6.0%. Anteroapical, apical septal, and apical akinesis. LVEF is 25-30%. Stage III diastolic dysfunction. The aortic valve is trileaflet normal in structure. There is mild mitral valve regurgitation noted. There is trace of pericardial effusion.
[2025-05-24] MEDS: FAMOTIDINE 20MG TAB PO SCH (21:27)
[2025-05-24] MEDS: ASPIRIN 325MG TAB PO ONE (21:27)
--- NOTE | 2025-05-24 21:37 | HMCIMG ---
EXAM: CTA Chest with and without Intravenous Contrast for PE evaluation CLINICAL HISTORY: Elevated D-dimer. TECHNIQUE: Axial CTA images of the chest with and without intravenous contrast using a pulmonary embolism protocol. Multiplanar reconstructed images were created and reviewed. CONTRAST: Iodinated contrast was administered without incident. COMPARISON: None provided. FINDINGS: PULMONARY ARTERIES: No obvious embolus within the pulmonary trunk, main pulmonary arteries, or segmental arteries. Subsegmental arteries were not adequately opacified for characterization. AORTA: Atherosclerotic wall calcifications in the arch and descending thoracic aorta. There is no evidence for aneurysm or dissection of the thoracic aorta. LUNGS: Moderate bilateral pleural effusion, more pronounced on the right side. Smooth interstitial interlobular septal thickening in both lungs with ground-glass densities, concerning for pulmonary edema. PLEURAL SPACES: Moderate bilateral pleural effusion, more pronounced on the right side. No pneumothorax evident. HEART: Normal heart size. No significant pericardial effusion. LYMPH NODES: No lymphadenopathy is evident. BONES: No focal osseous abnormality or acute fracture. UPPER ABDOMEN: There is reflux of contrast in the IVC and hepatic veins. The gallbladder is surgically absent. A small hiatus hernia. Images of the upper abdomen are otherwise unremarkable. IMPRESSION: No obvious embolus within the pulmonary trunk, main pulmonary arteries, or segmental arteries. Subsegmental arteries were not adequately opacified for characterization. Moderate bilateral pleural effusions, more pronounced on the right, with smooth interlobular septal thickening and ground-glass opacities concerning for pulmonary edema. /Alexandra
[2025-05-24] MEDS: BENZOCAINE/MENTH/CETYLPYRD CL 1 EACH LOZENGE MM PRN (21:52)
[2025-05-24] MEDS: HYDROcodone/APAP 5/325 1 TAB TABLET PO PRN (21:57)
[2025-05-24] MEDS: MAGNESIUM 2GM PREMIX 50ML 50 ML IV ONE (21:59)
[2025-05-24] MEDS: MAGNESIUM 2GM PREMIX 50ML 50 ML IV SCH (22:11)
[2025-05-24 22:26] LABS: CREATINE KINASE, TOTAL 52.0 U/L (21-232)
--- NOTE | 2025-05-24 22:41 | EKG ---
[facility] Test Date: 2025-05-24 Test Time: 22:39:51 Pat Name: LIBRA DE LA CRUZ Department: [facility] Room: 229 1 Gender: F Software Tester: [id number] : 1950 Requested By: FILIBERTO MADDOX Order Number: [id number] Reading MD: Capri Mo Measurements Intervals [place] Rate: 171 P: 0 KS: 0 QRS: 129 QRSD: 82 T: 84 QT: 288 QTc: 485 Interpretive Statements Supraventricular tachycardia Right axis deviation Pulmonary disease pattern Compared to ECG 05/24/2025 13:33:11 Right-axis deviation now present Sinus rhythm no longer present T-wave abnormality no longer present Possible ischemia no longer present Electronically Signed On 05-26-2025 08:46:06 EMS COORDINATOR by Capri Mo Please click the below link to view image of tracing.
[2025-05-24] MEDS: AMIODARONE 360MG/200ML BAG 200 ML ONE (23:00)
[2025-05-24] MEDS: AMIOdarone 150MG/100ML BAG 100 ML ONE (23:00)
[2025-05-24] MEDS: AMIOdarone 150MG/100ML BAG 100 ML IV ONE (23:30)
[2025-05-24] MEDS: AMIODARONE 360MG/200ML BAG 200 ML IV ONE (23:30)
[2025-05-25] VITALS (16 sets, daily range): BP systolic 100–125; BP diastolic 53–70; PULSE 68–91; RESP 16–20; TEMP 96.9–98.3; O2SAT 94–100
[2025-05-25 03:49] LABS: NUCLEATED RED BLOOD CELLS 0.0 % (0.0-0.19); PLATELET COUNT (AUTO) 246.0 K/uL (130-400); RED BLOOD CELL COUNT(AUTO) 3.8 MIL/uL (4.00-5.50); RED CELL DISTRIBUTION WIDTH 12.3 % (11.0-15.5); WHITE BLOOD COUNT (AUTO) 12.0 K/uL (4.8-10.8)
[2025-05-25 04:08] LABS: ASPARTATE AMINOTRANSFERASE 113.0 U/L (10-37); CREATINE KINASE, TOTAL 64.0 U/L (21-232); CREATININE 1.6 mg/dL (0.5-1.0); GLOMERULAR FILTR. RATE CALC 34.0 mL/min (>90); GLUCOSE,RANDOM 326.0 mg/dL (70-105); PHOSPHORUS 4.2 mg/dL (2.5-4.9); SODIUM SERUM 133.0 mmol/L (136-145); TOTAL PROTEIN, SERUM 7.1 g/dL (6.0-8.3); UREA NITROGEN, BLOOD 21.0 mg/dL (7-18)
--- NOTE | 2025-05-25 05:36 | HMCIMG ---
EXAMINATION: SPECTRAL DOPPLER ULTRASOUND EXAMINATION OF THE BILATERAL LOWER EXTREMITY VEINS. CLINICAL HISTORY: Elevated D-dimer. COMPARISON: None provided. TECHNIQUE: Real-time ultrasound scan of the veins of the bilateral lower extremity with color Doppler flow, spectral waveform analysis and compression. FINDINGS: DEEP VEINS: The common femoral, superficial femoral, and popliteal veins are echolucent and compressible. There is normal color Doppler flow throughout. The visualized calf veins appear patent. SUPERFICIAL VEINS: The greater saphenous veins are patent and compressible. SOFT TISSUES: No popliteal fossa cyst or other abnormalities. IMPRESSION: No deep venous thrombosis evident in the bilateral lower extremity. No superficial thrombophlebitis in the bilateral lower extremity. /Alexandra
--- NOTE | 2025-05-25 06:00 | NUR ---
Overnight events: 05/24/25: 1954: patient taken to CT for CT PE protocol, taken via hospital bed on 2L NC, patient in stable condition 2124: monitoring manager reports patients' heart rate is ranging from 130's to 140's and sustaining. 2139: patient complaining of anxiety at this time and persistent cough, patient given scheduled night meds as well as PRN Xanax, Robitussin, Cepacol given as well 2199: patient received Metoprolol IV and Magnesium 2 gm IV from [facility] SALES OFFICE MANAGER 2215: Patient received Lasix IV and is on Bipap ordered by [facility] SALES OFFICE MANAGER, currently still tachycardic in the 150's, restless, and tachypneic in the 30's. 2230: Patient received Morphine IV to manage chest pain, patient currently on Bipap 06/19 rate of 16 Fio2 of 40%. 2308: patient has been staying NSR 70's as per monitoring manager for the last 10 minutes. Patient calm and arousable with respiratory rate of 20 to 25 breaths per minute. 2325: patient currently NSR in the 70s with no more episodes of Afib, Amio drip on hold as per [facility] SALES OFFICE MANAGER. 05/25/25 0000: patient calm, arousable, on bipap, NSR. 0400: patient calm, arousable, on bipap, NSR. 0600: patient calm, arousable, on bipap, NSR.
--- NOTE | 2025-05-25 06:13 | EKG ---
[facility] Test Date: 2025-05-25 Test Time: 06:11:27 Pat Name: LIBRA DE LA CRUZ Department: [facility] Room: 229 1 Gender: F Yacht Hand: [id number] : 1950 Requested By: FILIBERTO MADDOX [facility]: [id number] Reading MD: Capri Mo Measurements Intervals [place] Rate: 68 P: 60 MO: 170 QRS: 78 QRSD: 82 T: 176 QT: 538 QTc: 572 Interpretive Statements Normal sinus rhythm Low voltage QRS Marked T wave abnormality, consider anterolateral ischemia Prolonged QT Compared to ECG 05/24/2025 22:39:51 Low QRS voltage now present T-wave abnormality now present Possible ischemia now present Prolonged QT interval now present Supraventricular tachycardia no longer present Right-axis deviation no longer present Electronically Signed On 05-26-2025 08:45:42 HUMAN RESOURCES CONSULTANT by Capri Mo Please click the below link to view image of tracing.
[2025-05-25] MEDS: LISINOPRIL 20 MG TABLET PO SCH (08:53)
[2025-05-25] MEDS: ASPIRIN 81 MG EC TAB PO SCH (08:53)
--- NOTE | 2025-05-25 10:38 | PN ---
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 Patient assessed at bedside. Denies chest pain, palpitation, or shortness for breath. She is currently on 2 L via NC. Tolerated bipap over night. she diuresed well and resp status has improved. Cardiology team recommended LHC possibly in the next 48-72 hrs once improved resp status. She remains on heparin gtt and Hemodynamically stable. No major overnight events reported. Daughter at the bedside and have informed them of current clinical findings and will follow cardiology recommendations. Prognosis is guarded. REVIEW OF SYSTEMS: 12 point ROS reviewed with patient. Pertinent positives mentioned above. Otherwise negative. PHYSICAL EXAM: GENERAL: alert, weak, awake oriented x 3 HEENT: EOMI, Sclera non icteric, moist mucosa NECK: Supple, no JVD, trachea midline LUNGS: Clear breath sounds bilaterally. No wheezes HEART: Regular rate and rhythm. Normal S1 and S2, without murmurs ABD: Abdomen soft, nontender. Bowel sounds present EXT: No clubbing cyanosis or edema NEURO: Alert and oriented to person, follows commands Vital Signs (last 8hr) Date Time Temp Pulse Resp B/P (MAP) Pulse Ox O2 Delivery O2 Flow Rate FiO2 05/25/25 07:58 97.0 69 16 100/62 100 BIPAP 05/25/25 06:48 70 20 40 05/25/25 06:48 70 18 05/25/25 05:15 98.1 74 18 104/70 100 BIPAP LABS: Hematology Labs: Test 05/25/25 03:31 05/24/25 13:06 Range/Units White Blood Count 12.0 H 4.8-10.8 K/uL Red Blood Count 3.80 L 4.00-5.50 MIL/uL Hemoglobin 11.0 L 12.0-16.0 g/dL Hematocrit 32.8 L 36-48 % Mean Corpuscular Volume 86.3 79-99 fL Mean Corpuscular Hemoglobin 28.9 27.0-33.0 pg Mean Corpuscular Hemoglobin Concent 33.5 32.0-36.0 g/dL Red Cell Distribution Width 12.3 11.0-15.5 % Platelet Count 246 130-400 K/uL Mean Platelet Volume 11.8 H 7.5-10.5 fL Nucleated Red Blood Cells 0.0 0.0-0.19 % Immature Granulocyte % (Auto) 0.3 0-1 % Neutrophils (%) (Auto) 77.7 H 40.0-77.0 % Lymphocytes (%) (Auto) 15.1 L 21.0-51.0 % Monocytes (%) (Auto) 6.0 3.0-13.0 % Eosinophils (%) (Auto) 0.4 0.0-8.0 % Basophils (%) (Auto) 0.5 0.0-5.0 % Neutrophils # (Auto) 8.1 H 1.8-7.7 K/uL Lymphocytes # (Auto) 1.6 1.0-4.8 K/uL Monocytes # (Auto) 0.6 0.1-1.0 K/uL Eosinophils # (Auto) 0.04 0.00-0.70 K/uL Basophils # (Auto) 0.05 0.00-0.20 K/uL Absolute Immature Granulocyte (auto 0.03 0-1 K/uL Chemistry Labs: Test 05/25/25 09:39 05/25/25 06:36 05/25/25 03:31 05/24/25 15:15 Range/Units Troponin I High Sensitivity 3839 *H 4-50 ng/L Whole Blood Glucose 250 H 70-110 MG/DL Sodium Level 133 L 136-145 mmol/L Potassium Level 4.4 3.5-5.1 mmol/L Chloride Level 99 L 101-111 mmol/L Carbon Dioxide Level 24 21-32 mmol/L Blood Urea Nitrogen 21 H 7-18 mg/dL Creatinine 1.6 H 0.5-1.0 mg/dL Glomerular Filtration Rate Calc 34 >90 mL/min Random Glucose 326 H 70-105 mg/dL Total Calcium 8.4 L 8.5-10.1 mg/dL Phosphorus Level 4.2 2.5-4.9 mg/dL Magnesium Level 2.50 H 1.80-2.40 mg/dL Total Bilirubin 0.5 0.2-1.0 mg/dL Aspartate Amino Transf (AST/SGOT) 113 H 10-37 U/L Alanine Aminotransferase (ALT/SGPT) 112 #H 12-78 U/L Alkaline Phosphatase 132 50-136 U/L Total Creatine Kinase 64 # 21-232 U/L B-Type Natriuretic Peptide 3740 H 0-100 pg/mL Total Protein 7.1 6.0-8.3 g/dL Albumin 2.8 L 3.5-5.0 g/dL Triglycerides Level 56 30-200 mg/dL Cholesterol Level 139 <200 mg/dL LDL Cholesterol 66 0-99 mg/dL HDL Cholesterol 59 35-85 mg/dL Procalcitonin < 0.05 L 0.05-0.5 ng/mL Thyroid Stimulating Hormone (TSH) 0.08 L 0.36-3.74 uIU/mL Test 05/24/25 13:06 Range/Units Hemoglobin A1c 8.3 H 4.0-6.0 % Estimated Average Glucose (eAG) 192 H 70-126 mg/dL Lactic Acid Level 1.8 0.8-2.5 mmol/L Direct Bilirubin 0.2 0.0-0.3 mg/dL Coagulation Labs: Test 05/25/25 09:39 05/24/25 15:15 Range/Units Activated Partial Thromboplast Time > 139.0 *H 26.3-35.5 SEC Prothrombin Time 12.4 H 9.6-11.6 SEC Prothromb Time International Ratio 1.19 H 0.85-1.15 D-Dimer Quantitative (PE/DVT) 692 *H 0-500 ng/mL DIAGNOSTICS / RADIOLOGY RESULTS: [place] [address] [address] IMAGING REPORT Signed PATIENT: LIBRA DE LA CRUZ MR#: [id number] : 1950 SEX: F AGE: 74 LOCATION: 2AH ORDER [id number] [facility]US: [facility] REPORT#: [id number] SERVICE 14 REASON: + D DIMER ORDERING PHYSICIAN: FILIBERTO MADDOX PROCEDURE: VENOUS EMILIA - US VENOUS DOPPLER BILATERAL EXAMINATION: SPECTRAL DOPPLER ULTRASOUND EXAMINATION OF THE BILATERAL LOWER EXTREMITY VEINS. CLINICAL HISTORY: Elevated D-dimer. COMPARISON: None provided. TECHNIQUE: Real-time ultrasound scan of the veins of the bilateral lower extremity with color Doppler flow, spectral waveform analysis and compression. FINDINGS: DEEP VEINS: The common femoral, superficial femoral, and popliteal veins are echolucent and compressible. There is normal color Doppler flow throughout. The visualized calf veins appear patent. SUPERFICIAL VEINS: The greater saphenous veins are patent and compressible. SOFT TISSUES: No popliteal fossa cyst or other abnormalities. IMPRESSION: No deep venous thrombosis evident in the bilateral lower extremity. No superficial thrombophlebitis in the bilateral lower extremity. /[place] DICTATED BY: HANNAH WADSWORTH MD DATE: 05/25/25634 ELECTRONICALLY SIGNED BY: HANNAH WADSWORTH MD DATE: 05/25/25634 [place] [address] IMAGING REPORT Signed PATIENT: LIBRA DE LA CRUZ MR#: [id number] : 1950 SEX: F AGE: 74 LOCATION: 2AH ORDER 18 STATUS: ADM IN REPORT#: [id number] SERVICE 14 REASON: + D DIMER ORDERING PHYSICIAN: FILIBERTO MADDOX PROCEDURE: CHES PE - CT CHEST PE PROTOCOL WWO CONT EXAM: CTA Chest with and without Intravenous Contrast for PE evaluation CLINICAL HISTORY: Elevated D-dimer. TECHNIQUE: Axial CTA images of the chest with and without intravenous contrast using a pulmonary embolism protocol. Multiplanar reconstructed images were created and reviewed. CONTRAST: Iodinated contrast was administered without incident. COMPARISON: None provided. FINDINGS: PULMONARY ARTERIES: No obvious embolus within the pulmonary trunk, main pulmonary arteries, or segmental arteries. Subsegmental arteries were not adequately opacified for characterization. AORTA: Atherosclerotic wall calcifications in the arch and descending thoracic aorta. There is no evidence for aneurysm or dissection of the thoracic aorta. LUNGS: Moderate bilateral pleural effusion, more pronounced on the right side. Smooth interstitial interlobular septal thickening in both lungs with ground-glass densities, concerning for pulmonary edema. PLEURAL SPACES: Moderate bilateral pleural effusion, more pronounced on the right side. No pneumothorax evident. HEART: Normal heart size. No significant pericardial effusion. LYMPH NODES: No lymphadenopathy is evident. BONES: No focal osseous abnormality or acute fracture. UPPER ABDOMEN: There is reflux of contrast in the IVC and hepatic veins. The gallbladder is surgically absent. A small hiatus hernia. Images of the upper abdomen are otherwise unremarkable. IMPRESSION: No obvious embolus within the pulmonary trunk, main pulmonary arteries, or segmental arteries. Subsegmental arteries were not adequately opacified for characterization. Moderate bilateral pleural effusions, more pronounced on the right, with smooth interlobular septal thickening and ground-glass opacities concerning for pulmonary edema. /[place] DICTATED BY: REX MG Jr., MD DATE: 05/24/252235 ELECTRONICALLY SIGNED BY: REX MG Jr., MD DATE: 05/24/252235 PLAN continue PCCU status continue cardiac monitoring BIPAP PRN and HS wean o2 as possible to maintain o2 sat above 92% Follow cardiology recommendations Aspirin 325 mg x 1 then 81 mg daily Statin 40 mg q hs Plavix 75 mg daily Metoprolol Lisinopril Heparin drip Zosyn 3.375 GM IV Q 8 HOURS Doxycycline 100 MG IV Q 12 Glucometer checks AC/HS w/ regular insulin SS Resume levothyroxine Protonix 40 mg daily for PUD prophylaxis Repeat am Labs NEURO: Minimize central acting medications as possible. Maintain fall precautions, adequate lighting during the day PULMONARY: Supplemental 02 as needed. Maintain aspiration precautions at all times CARDIOVASCULAR: Follow hemodynamics. Vital signs per facility protocol GI & NUTRITION: Continue with nutritional support. Continue stool softeners and laxatives as needed. KIDNEYS & ELECTROLYTES: Strict monitoring of intake, output and overall fluid balance. Avoid nephrotoxic medications to the extent possible. Medications to be dosed according to renal function. Monitor electrolytes and replace as needed ENDOCRINE: Maintain blood glucose between 100-180 at all times. Hypoglycemia protocol in place INFECTIOUS DISEASE: Trend temperature, WBC and procalcitonin level Follow cultures, deescalate antibiotics as soon as possible. Panculture if new onset fever ONCOLOGY/HEMATOLOGY/COAGULATION: Monitor for s/s of bleeding Monitor hemoglobin, coagulation studies as needed SKIN: Pressure ulcer prevention per facility protocol Specialty mattress ORTHO/REHAB: Continue PT/OT Prophylaxis: Continue GI and DVT prophylaxis Code Status: Full Resuscitation Disposition: TBD ATTESTATION BY PHYSICIAN I have evaluated the patient chart, medical records, and spoke with appropriate staff. I reviewed the documentation, medical decision making, and treatment plan as noted by the mid-level provider above. I agree with the findings and plan of care. LUKE Phillips MD AGACNP May 25, 2025 10:38
--- NOTE | 2025-05-25 11:23 | CONS ---
Cardiology Consult Note Attending Research Program Manager: Dr. Caden Burch Consulting Physician: Benchmark Date of Service: 05/25/2025 Reason for Consult: ACS-NSTEMI HPI: This is a 74y/o female with a past medical history of HTN, HLP, DM2, normocytic normochromic anemia, paroxysmal atrial fibrillation, on anticoagulation, PSVT s/p DCCV on 05/21/2025, low-normal LV systolic function (LVEF: 50-55% by echo done 04/19/2025), CVI s/p venous ablation, and anxiety/depression who presents with shortness of breath of 1 day in duration. The symptoms began spontaneously and over the ensuing timeframe were constant and progressively worsened. The symptoms were present throughout the day, were exacerbated by physical activity and prolonged conversations and not alleviated by anything. Associated symptoms include generalized weakness/fatigue, headache, chest pain (dull in quality, 7/10 in intensity, and nonradiating), and chills. Pertinent negatives include dizziness, syncope, palpitations, PND, orthopnea, abdominal pain, nausea, vomiting, weight gain, lower extremity swelling, diaphoresis, or fever. The patient's progression of symptoms prompted her to seek a higher level of care. While on the inpatient service, laboratory data identified an elevated HS troponin I level. Cardiology was consulted for treatment recommendations. PMH: Listed above PSH: Listed above FH: Significant for HTN, HLP, DM II SH: Denies alcohol, tobacco, or illicit drug use. Allergies: Coded Allergies: No Known Drug Allergies (Unverified Allergy, Unknown, 05/20/25) Review of systems: General: As per the HPi HEENT: Denies changes in vision, earache or sore throat Neck: Denies pain or stiffness Cardio: As per the HPI Pulm: As per the HPI GI: Denies abdominal pain, nausea, vomiting, diarrhea, or constipation. MSK: Denies decreased ROM or joint pain. Heme: Denies anemia, easy bruising, or bleeding. Neuro: As per the HPI Psyche: Denies anxiety, depression, or suicidal ideation. Physical Exam: Vital Signs Date Time Temp Pulse Resp B/P (MAP) Pulse Ox O2 Delivery O2 Flow Rate FiO2 05/25/25 07:58 97.0 69 16 100/62 100 BIPAP 05/25/25 06:48 40 05/24/25 20:00 2 General: Alert and oriented. NAD. Chronically ill appearing. HEENT: NC/AT. Oral mucosa is moist. Neck: No masses, JVD, or carotid bruits Lungs: SCM. Bilateral air entry. Diminished breath sounds noted to the bilateral lower lung tineo. Cardio: Regular rate. Normal S1 and S2. +S4. No obvious murmurs, gallops, or rubs noted. Abdomen: Soft. NT. ND. Normal active bowel sounds x 4 quadrants. Extremities: Diminished throughout. No edema, clubbing, or cyanosis. Neuro: CN II-XII were grossly intact. No focal deficits. Labs: Laboratory Tests Test 05/24/25 13:06 05/24/25 13:19 05/24/25 15:00 05/24/25 15:15 Range/Units White Blood Count 10.4 4.8-10.8 K/uL Red Blood Count 3.53 L 4.00-5.50 MIL/uL Hemoglobin 10.4 L 12.0-16.0 g/dL Hematocrit 30.9 L 36-48 % Mean Corpuscular Volume 87.5 79-99 fL Mean Corpuscular Hemoglobin 29.5 27.0-33.0 pg Mean Corpuscular Hemoglobin Concent 33.7 32.0-36.0 g/dL Red Cell Distribution Width 12.1 11.0-15.5 % Platelet Count 208 130-400 K/uL Mean Platelet Volume 11.1 H 7.5-10.5 fL Immature Granulocyte % (Auto) 0.3 0-1 % Neutrophils (%) (Auto) 77.7 H 40.0-77.0 % Lymphocytes (%) (Auto) 15.1 L 21.0-51.0 % Monocytes (%) (Auto) 6.0 3.0-13.0 % Eosinophils (%) (Auto) 0.4 0.0-8.0 % Basophils (%) (Auto) 0.5 0.0-5.0 % Neutrophils # (Auto) 8.1 H 1.8-7.7 K/uL Lymphocytes # (Auto) 1.6 1.0-4.8 K/uL Monocytes # (Auto) 0.6 0.1-1.0 K/uL Eosinophils # (Auto) 0.04 0.00-0.70 K/uL Basophils # (Auto) 0.05 0.00-0.20 K/uL Absolute Immature Granulocyte (auto 0.03 0-1 K/uL Nucleated Red Blood Cells 0.0 0.0-0.19 % Sodium Level 136 136-145 mmol/L Potassium Level 4.1 3.5-5.1 mmol/L Chloride Level 100 L 101-111 mmol/L Carbon Dioxide Level 26 21-32 mmol/L Blood Urea Nitrogen 17 7-18 mg/dL Creatinine 1.1 H 0.5-1.0 mg/dL Glomerular Filtration Rate Calc 53 >90 mL/min Random Glucose 278 H 70-105 mg/dL Hemoglobin A1c 8.3 H 4.0-6.0 % Estimated Average Glucose (eAG) 192 H 70-126 mg/dL Lactic Acid Level 1.8 0.8-2.5 mmol/L Total Calcium 8.4 L 8.5-10.1 mg/dL Total Bilirubin 0.6 0.2-1.0 mg/dL Direct Bilirubin 0.2 0.0-0.3 mg/dL Aspartate Amino Transf (AST/SGOT) 20 10-37 U/L Alanine Aminotransferase (ALT/SGPT) 32 12-78 U/L Alkaline Phosphatase 111 50-136 U/L Troponin I High Sensitivity 728 *H 1290.1 *H 4-50 ng/L B-Type Natriuretic Peptide 293 H 0-100 pg/mL Total Protein 6.4 6.0-8.3 g/dL Albumin 3.1 L 3.5-5.0 g/dL SARS-CoV-2 Antigen (Rapid) PRESUMPTIVE NEGATIVE NEGATIVE Influenza Type A Antigen Negative For Type A NEGATIVE Influenza Type B Antigen Negative For Type B NEGATIVE Prothrombin Time 12.4 H 9.6-11.6 SEC Prothromb Time International Ratio 1.19 H 0.85-1.15 Activated Partial Thromboplast Time 29.3 26.3-35.5 SEC D-Dimer Quantitative (PE/DVT) 692 *H 0-500 ng/mL Total Creatine Kinase 44 21-232 U/L Triglycerides Level 56 30-200 mg/dL Cholesterol Level 139 <200 mg/dL LDL Cholesterol 66 0-99 mg/dL HDL Cholesterol 59 35-85 mg/dL Procalcitonin < 0.05 L 0.05-0.5 ng/mL Thyroid Stimulating Hormone (TSH) 0.08 L 0.36-3.74 uIU/mL Test 05/24/25 20:30 05/24/25 21:09 05/25/25 03:31 05/25/25 06:36 Range/Units Whole Blood Glucose 215 H 250 H 70-110 MG/DL Activated Partial Thromboplast Time > 139.0 #*H > 139.0 *H 26.3-35.5 SEC Total Creatine Kinase 52 64 # 21-232 U/L Troponin I High Sensitivity 2348.2 *H 3698.0 *H 4-50 ng/L White Blood Count 12.0 H 4.8-10.8 K/uL Red Blood Count 3.80 L 4.00-5.50 MIL/uL Hemoglobin 11.0 L 12.0-16.0 g/dL Hematocrit 32.8 L 36-48 % Mean Corpuscular Volume 86.3 79-99 fL Mean Corpuscular Hemoglobin 28.9 27.0-33.0 pg Mean Corpuscular Hemoglobin Concent 33.5 32.0-36.0 g/dL Red Cell Distribution Width 12.3 11.0-15.5 % Platelet Count 246 130-400 K/uL Mean Platelet Volume 11.8 H 7.5-10.5 fL Nucleated Red Blood Cells 0.0 0.0-0.19 % Sodium Level 133 L 136-145 mmol/L Potassium Level 4.4 3.5-5.1 mmol/L Chloride Level 99 L 101-111 mmol/L Carbon Dioxide Level 24 21-32 mmol/L Blood Urea Nitrogen 21 H 7-18 mg/dL Creatinine 1.6 H 0.5-1.0 mg/dL Glomerular Filtration Rate Calc 34 >90 mL/min Random Glucose 326 H 70-105 mg/dL Total Calcium 8.4 L 8.5-10.1 mg/dL Phosphorus Level 4.2 2.5-4.9 mg/dL Magnesium Level 2.50 H 1.80-2.40 mg/dL Total Bilirubin 0.5 0.2-1.0 mg/dL Aspartate Amino Transf (AST/SGOT) 113 H 10-37 U/L Alanine Aminotransferase (ALT/SGPT) 112 #H 12-78 U/L Alkaline Phosphatase 132 50-136 U/L B-Type Natriuretic Peptide 3740 H 0-100 pg/mL Total Protein 7.1 6.0-8.3 g/dL Albumin 2.8 L 3.5-5.0 g/dL Test 05/25/25 09:39 Range/Units Activated Partial Thromboplast Time > 139.0 *H 26.3-35.5 SEC Troponin I High Sensitivity 3839 *H 4-50 ng/L Assessment: -ACS-NSTEMI -Bilateral pleural effusions (R>L) -CAP -Acute BiV HFrEF (LVEF: 25-30% with mild-moderately reduced RV systolic function) by echo done 05/24/2025 -Elevated D Dimer, negative for DVT/PE -Paroxysmal atrial fibrillation with RVR -HTN -HLP -DM2 -Normocytic normochromic anemia -CVI s/p venous ablation -Anxiety/depression Plan: 1. ACS-NSTEMI -Cardiac enzymes-HS troponin I: 728>1290>2348>3698>3839 -The above mentioned findings are suggestive of ACS-NSTEMI. As a result, the patient will continue on goal directed ACS treatment which includes aspirin 81 m g daily, clopidogrel 300 mg x 1 dose, followed by 75 mg daily, IV heparin infusion (ACS protocol), metoprolol succinate 25 mg BID, and atorvastatin 40 mg QHS. -We will first optimize the patient's volume status, will then refer her for a C/coronary angiogram with possible intervention. This will likely take place in the next 24-72 hours. 2. Acute BiV HFrEF (LVEF: 25-30% with mild-moderately reduced RV systolic function) by echo done 05/24/2025 -BNP: 3740, admission: 293 -The patient will continue on furosemide 20 mg IV TID in order to target a 2x increase in the BUN, 30% rise in the creatinine, or a BNP level cut in half. -In the meantime, she will continue on metoprolol succinate 25 mg BID and lisinopril 20 mg daily. -Please record strict I/O's, daily weights, and restrict fluids to less than 1.5L/day 3. Paroxysmal atrial fibrillation with RVR -Substrate: Dilated atria -Continue metoprolol succinate 25 mg BID -CHADS2 VASc score: 6 points. Continue the IV heparin infusion. Once all planned procedures have been performed and prior to discharge, she should be transitioned back to oral anticoagulation with Eliquis 5 mg BID. -Please keep the patient on continuous telemetry monitoring and maintain electrolytes within normal parameters. Thank you for this interesting consult and allowing us to participate in the care of your patient. Further recommendations to follow. This case was discussed with my Supervising Physician, Dr. Caden Burch, and the above mentioned plan was formulated and agreed upon. -Consult Note written by Vasu Kruger, MSN, MECHANIC SOUND TECHNICIAN, FIFIP-BC VASU KRUGER May 25, 2025 11:23
[2025-05-25 11:43] LABS: ABG BASE EXCESS -1.6 mmol/L (-2.0-3.0); ABG HCO3 22.0 mmol/L (21.0-28.0); ABG OXYGEN SATURATION 97.7 % (94.0-98.0); ABG PCO2 34 mmHg (32-45); ABG PH 7.427 (7.350-7.450); PO2, ARTERIAL BG 99.6 mmHg (83.0-108.0); TEMPERATURE, CELSIUS BG 37.0 CELSIUS (35.5-37.0); VENT MODE, BG NC 2L (ROOM AIR)
[2025-05-25] MEDS: SODIUM CHLORIDE 3% FOR INHALATION 4 ML/AMP VIAL.NEB IH ONE ×2 (18:58→22:50)
[2025-05-25] MEDS: DOXYCYCLINE HYCLATE 100 MG TABLET PO SCH (20:00)
[2025-05-26] VITALS (9 sets, daily range): BP systolic 109–136; BP diastolic 54–86; PULSE 72–80; RESP 18–26; TEMP 98.2–99.1; O2SAT 95–100
[2025-05-26 05:05] LABS: IMMATURE GRANULOCYTE ABSOLUTE 0.05 K/uL (0-1); NUCLEATED RED BLOOD CELLS 0.0 % (0.0-0.19); PLATELET COUNT (AUTO) 219 K/uL (130-400); RED BLOOD CELL COUNT(AUTO) 3.62 MIL/uL (4.00-5.50); RED CELL DISTRIBUTION WIDTH 12.2 % (11.0-15.5); WHITE BLOOD COUNT (AUTO) 11.7 K/uL (4.8-10.8)
[2025-05-26 05:07] LABS: ASPARTATE AMINOTRANSFERASE 31.0 U/L (10-37); CREATININE 1.6 mg/dL (0.5-1.0); GLOMERULAR FILTR. RATE CALC 34.0 mL/min (>90); GLUCOSE,RANDOM 153.0 mg/dL (70-105); SODIUM SERUM 134.0 mmol/L (136-145); TOTAL PROTEIN, SERUM 6.6 g/dL (6.0-8.3); UREA NITROGEN, BLOOD 23.0 mg/dL (7-18)
[2025-05-26] MEDS: SODIUM CHLORIDE 3% FOR INHALATION 4 ML/AMP VIAL.NEB IH ONE (06:33)
--- NOTE | 2025-05-26 11:00 | NUR ---
PENDING HEART CATH.
[2025-05-26] MEDS: PoTASSium chloRIDE 20MEQ ER 20 MEQ ERTAB PO ONE (14:43)
[2025-05-26] MEDS: 0.9%NACL 1000ML 1,000 ML IV SCH (14:43)
--- NOTE | 2025-05-26 18:59 | PN ---
[facility] CARDIOLOGY PROGRESS NOTE Date Patient Seen: May 26, 2025 Time of Visit: 18:49 Interval History: [ No acute events overnight , the patient denies any cardiac symptoms or anginal equivalents , we will plan for coronary angiogram for tomorrow morning , all risks were discussed , patient verbalized understanding and consents with the procedure. ] Physical Examination: General: Alert and oriented. NAD. Chronically ill appearing. HEENT: NC/AT. Oral mucosa is moist. Neck: No masses, mild JVD, Lungs: SCM. Bilateral air entry. Diminished breath sounds noted to the bilateral lower lung tineo. Cardio: Regular rate. Normal S1 and S2. +S4. No obvious murmurs, gallops, or rubs noted. Abdomen: Soft. NT. ND. Normal active bowel sounds x 4 quadrants. Extremities: Diminished throughout. No edema, clubbing, or cyanosis. Neuro: CN II-XII were grossly intact. No focal deficits. Laboratory: [ ] Hematology Labs: Test 05/26/25 04:38 Range/Units White Blood Count 11.7 H 4.8-10.8 K/uL Red Blood Count 3.62 L 4.00-5.50 MIL/uL Hemoglobin 10.5 L 12.0-16.0 g/dL Hematocrit 31.2 L 36-48 % Mean Corpuscular Volume 86.2 79-99 fL Mean Corpuscular Hemoglobin 29.0 27.0-33.0 pg Mean Corpuscular Hemoglobin Concent 33.7 32.0-36.0 g/dL Red Cell Distribution Width 12.2 11.0-15.5 % Platelet Count 219 130-400 K/uL Mean Platelet Volume 11.9 H 7.5-10.5 fL Immature Granulocyte % (Auto) 0.4 0-1 % Neutrophils (%) (Auto) 65.8 40.0-77.0 % Lymphocytes (%) (Auto) 26.5 21.0-51.0 % Monocytes (%) (Auto) 6.2 3.0-13.0 % Eosinophils (%) (Auto) 0.7 0.0-8.0 % Basophils (%) (Auto) 0.4 0.0-5.0 % Neutrophils # (Auto) 7.7 1.8-7.7 K/uL Lymphocytes # (Auto) 3.1 1.0-4.8 K/uL Monocytes # (Auto) 0.7 0.1-1.0 K/uL Eosinophils # (Auto) 0.08 0.00-0.70 K/uL Basophils # (Auto) 0.05 0.00-0.20 K/uL Absolute Immature Granulocyte (auto 0.05 0-1 K/uL Nucleated Red Blood Cells 0.0 0.0-0.19 % Chemistry Labs: Test 05/26/25 16:29 05/26/25 04:38 05/25/25 09:39 05/25/25 03:31 Range/Units Whole Blood Glucose 143 H 70-110 MG/DL Sodium Level 134 L 136-145 mmol/L Potassium Level 3.6 3.5-5.1 mmol/L Chloride Level 98 L 101-111 mmol/L Carbon Dioxide Level 28 21-32 mmol/L Blood Urea Nitrogen 23 H 7-18 mg/dL Creatinine 1.6 H 0.5-1.0 mg/dL Glomerular Filtration Rate Calc 34 >90 mL/min Random Glucose 153 H 70-105 mg/dL Total Calcium 8.3 L 8.5-10.1 mg/dL Magnesium Level 1.60 L 1.80-2.40 mg/dL Total Bilirubin 0.5 0.2-1.0 mg/dL Aspartate Amino Transf (AST/SGOT) 31 10-37 U/L Alanine Aminotransferase (ALT/SGPT) 67 12-78 U/L Alkaline Phosphatase 103 50-136 U/L Total Protein 6.6 6.0-8.3 g/dL Albumin 2.6 L 3.5-5.0 g/dL Troponin I High Sensitivity 3839 *H 4-50 ng/L Phosphorus Level 4.2 2.5-4.9 mg/dL Total Creatine Kinase 64 # 21-232 U/L B-Type Natriuretic Peptide 3740 H 0-100 pg/mL Coagulation Labs: Test 05/26/25 04:38 Range/Units Activated Partial Thromboplast Time 53.3 H 26.3-35.5 SEC Diagnostics / Radiology: [Copy/Paste Echos/Imaging Report here] Impression and Plan: [-ACS-NSTEMI -Bilateral pleural effusions (R>L) -CAP -Acute BiV HFrEF (LVEF: 25-30% with mild-moderately reduced RV systolic function) by echo done 05/24/2025 -Elevated D Dimer, negative for DVT/PE -Paroxysmal atrial fibrillation with RVR -HTN -HLP -DM2 -Normocytic normochromic anemia -CVI s/p venous ablation -Anxiety/depression Plan: 1. ACS-NSTEMI -Cardiac enzymes-HS troponin I: 728>1290>2348>3698>3839 - Her troponin elevation could be due to her recent cardioversion done on 05-14-25 -Will continue on goal directed ACS treatment which includes aspirin 81 mg daily, clopidogrel 75 mg daily, , metoprolol succinate 25 mg BID, and atorvastatin 40 mg QHS. -We will plan for coronary angiogram tomorrow morning , all the risks and goals were extensively discussed with the patient , which verbalized understanding and consents with the procedure -Please keep NPO after midnight. 2. Acute BiV HFrEF (LVEF: 25-30% with mild-moderately reduced RV systolic function) by echo done 05/24/2025which is a new drop in her systolic function compared to prior -BNP: 3740, admission: 293 -The patient will continue on furosemide 20 mg IV TID in order to target a 2x increase in the BUN, 30% rise in the creatinine, or a BNP level cut in half. -In the meantime, she will continue on metoprolol succinate 25 mg BID and lisinopril 20 mg daily. -Please record strict I/O's, daily weights, and restrict fluids to less than 1.5L/day 3. Paroxysmal atrial fibrillation with RVR s/p cardioversion on 05-14-25 -Substrate: Dilated atria -Continue metoprolol succinate 25 mg BID -CHADS2 VASc score: 6 points. Continue the IV heparin infusion. Once all planned procedures have been performed and prior to discharge, she should be transitioned back to oral anticoagulation with Eliquis 5 mg BID. -Please keep the patient on continuous telemetry monitoring and maintain electrolytes within normal parameters. ] Thank you for this consult , cardiology will continue to follow along. Dexter Jordan MD ATTESTATION BY PHYSICIAN I have seen and examined the patient, reviewed the above documentation, participated in medical decision making, made necessary modifications, and agree with the treatment plan as documented by my mid-level provider above. MD ORAL Priest JAMES R MD May 26, 2025 18:59
--- NOTE | 2025-05-26 22:17 | PN ---
[facility] PROGRESS NOTE Date Patient Seen: May 26, 2025 Time of Visit: 12:00 Supervising Physician: [ Gokul Lopez MD] Primary Care Physician: [ ] Outpatient Specialists: [ ] Inpatient Consults: [Dr Fierro PROBLEM LIST: NSTEMI Acute in chronic combined Heart failure w/ EF 25-30% on echo, improved Community Acquired Pneumonia DICKSON on CKD ST 2 GFR 53ML/MIN 2/2 to INDY Anemia of chronic disease Type 2 DM w Hyperglycemia Essential Hypertension Hyperlipidemia HX of A-Fib- on Eliquis - recent cardioversion 05-21-25 (Dr Fierro) Hypothyroidism INTERVAL HISTORY: Patient is awake alert and oriented x3 hemodynamically stable currently on 2 L via nasal cannula in no apparent distress. White count improving today 11.7 H&H stable 10.5/31.2 platelet count is normal. Chemistries shows a sodium of 134 chloride of 98 BUN 23 creatinine 1.6 GFR of 34 likely from contrast induced nephropathy. We will start light hydration with the NS at 50 mL/hour to improved renal function. ABG was unremarkable on 2 L via nasal cannula. Chest x-ray with increased pulmonary vascular congestion. Patient to continue BiPAP at HS and PRN. Troponin peaked at 3839. Will continue to follow cardiology recommendations for possible LHC tomorrow. REVIEW OF SYSTEMS: 12 point ROS reviewed with patient. Pertinent positives mentioned above. Otherwise negative. PHYSICAL EXAM: GENERAL: alert, weak, awake oriented x 3 HEENT: EOMI, Sclera non icteric, moist mucosa NECK: Supple, no JVD, trachea midline LUNGS: diminished breath sounds bilaterally. No wheezes HEART: Regular rate and rhythm. Normal S1 and S2, without murmurs ABD: Abdomen soft, nontender. Bowel sounds present EXT: No clubbing cyanosis or edema NEURO: Alert and oriented to person, follows commands Vital Signs (last 8hr) Date Time Temp Pulse Resp B/P (MAP) Pulse Ox O2 Delivery O2 Flow Rate FiO2 05/26/25 19:55 98.2 74 21 116/54 93 Room Air 05/26/25 16:27 98.2 72 18 109/67 98 Room Air LABS: Hematology Labs: Test 05/26/25 04:38 Range/Units White Blood Count 11.7 H 4.8-10.8 K/uL Red Blood Count 3.62 L 4.00-5.50 MIL/uL Hemoglobin 10.5 L 12.0-16.0 g/dL Hematocrit 31.2 L 36-48 % Mean Corpuscular Volume 86.2 79-99 fL Mean Corpuscular Hemoglobin 29.0 27.0-33.0 pg Mean Corpuscular Hemoglobin Concent 33.7 32.0-36.0 g/dL Red Cell Distribution Width 12.2 11.0-15.5 % Platelet Count 219 130-400 K/uL Mean Platelet Volume 11.9 H 7.5-10.5 fL Immature Granulocyte % (Auto) 0.4 0-1 % Neutrophils (%) (Auto) 65.8 40.0-77.0 % Lymphocytes (%) (Auto) 26.5 21.0-51.0 % Monocytes (%) (Auto) 6.2 3.0-13.0 % Eosinophils (%) (Auto) 0.7 0.0-8.0 % Basophils (%) (Auto) 0.4 0.0-5.0 % Neutrophils # (Auto) 7.7 1.8-7.7 K/uL Lymphocytes # (Auto) 3.1 1.0-4.8 K/uL Monocytes # (Auto) 0.7 0.1-1.0 K/uL Eosinophils # (Auto) 0.08 0.00-0.70 K/uL Basophils # (Auto) 0.05 0.00-0.20 K/uL Absolute Immature Granulocyte (auto 0.05 0-1 K/uL Nucleated Red Blood Cells 0.0 0.0-0.19 % Chemistry Labs: Test 05/26/25 19:35 05/26/25 19:25 05/26/25 18:47 05/26/25 04:38 Range/Units Whole Blood Glucose 161 H 70-110 MG/DL B-Type Natriuretic Peptide 526 H 0-100 pg/mL Troponin I High Sensitivity 1498 *H 4-50 ng/L Sodium Level 134 L 136-145 mmol/L Potassium Level 3.6 3.5-5.1 mmol/L Chloride Level 98 L 101-111 mmol/L Carbon Dioxide Level 28 21-32 mmol/L Blood Urea Nitrogen 23 H 7-18 mg/dL Creatinine 1.6 H 0.5-1.0 mg/dL Glomerular Filtration Rate Calc 34 >90 mL/min Random Glucose 153 H 70-105 mg/dL Total Calcium 8.3 L 8.5-10.1 mg/dL Magnesium Level 1.60 L 1.80-2.40 mg/dL Total Bilirubin 0.5 0.2-1.0 mg/dL Aspartate Amino Transf (AST/SGOT) 31 10-37 U/L Alanine Aminotransferase (ALT/SGPT) 67 12-78 U/L Alkaline Phosphatase 103 50-136 U/L Total Protein 6.6 6.0-8.3 g/dL Albumin 2.6 L 3.5-5.0 g/dL Test 05/25/25 03:31 Range/Units Phosphorus Level 4.2 2.5-4.9 mg/dL Total Creatine Kinase 64 # 21-232 U/L Coagulation Labs: Test 05/26/25 04:38 Range/Units Activated Partial Thromboplast Time 53.3 H 26.3-35.5 SEC DIAGNOSTICS / RADIOLOGY RESULTS: [ ] PLAN continue PCCU status continue cardiac monitoring BIPAP PRN and HS wean o2 as possible to maintain o2 sat above 92% Follow cardiology recommendations Aspirin 325 mg x 1 then 81 mg daily Statin 40 mg q hs Plavix 75 mg daily Metoprolol Lisinopril Heparin drip Zosyn 3.375 GM IV Q 8 HOURS Doxycycline 100 MG IV Q 12 Glucometer checks AC/HS w/ regular insulin SS Resume levothyroxine Protonix 40 mg daily for PUD prophylaxis Repeat am Labs Hold lasix light hydration with NS at 50 ml/hr. NEURO: Minimize central acting medications as possible. Maintain fall precautions, adequate lighting during the day PULMONARY: Supplemental 02 as needed. Maintain aspiration precautions at all times CARDIOVASCULAR: Follow hemodynamics. Vital signs per facility protocol GI & NUTRITION: Continue with nutritional support. Continue stool softeners and laxatives as needed. KIDNEYS & ELECTROLYTES: Strict monitoring of intake, output and overall fluid balance. Avoid nephrotoxic medications to the extent possible. Medications to be dosed according to renal function. Monitor electrolytes and replace as needed ENDOCRINE: Maintain blood glucose between 100-180 at all times. Hypoglycemia protocol in place INFECTIOUS DISEASE: Trend temperature, WBC and procalcitonin level Follow cultures, deescalate antibiotics as soon as possible. Panculture if new onset fever ONCOLOGY/HEMATOLOGY/COAGULATION: Monitor for s/s of bleeding Monitor hemoglobin, coagulation studies as needed SKIN: Pressure ulcer prevention per facility protocol Specialty mattress ORTHO/REHAB: Continue PT/OT Prophylaxis: Continue GI and DVT prophylaxis Code Status: Full Resuscitation Disposition: TBD ATTESTATION BY PHYSICIAN I reviewed the documentation, medical decision making, and treatment plan as noted by the mid-level provider above. I agree with the findings and plan of care. Gokul Lopez MD, [facility] May 26, 2025 22:17
[2025-05-27] VITALS (22 sets, daily range): BP systolic 102–144; BP diastolic 53–73; PULSE 69–84; RESP 16–24; TEMP 98.1–98.8; O2SAT 96–100
[2025-05-27 03:45] LABS: IMMATURE GRANULOCYTE ABSOLUTE 0.03 K/uL (0-1); NUCLEATED RED BLOOD CELLS 0.3 % (0.0-0.19); PLATELET COUNT (AUTO) 221 K/uL (130-400); RED BLOOD CELL COUNT(AUTO) 3.58 MIL/uL (4.00-5.50); RED CELL DISTRIBUTION WIDTH 12.1 % (11.0-15.5); WHITE BLOOD COUNT (AUTO) 9.6 K/uL (4.8-10.8)
[2025-05-27 05:36] LABS: CREATININE 1.5 mg/dL (0.5-1.0); GLOMERULAR FILTR. RATE CALC 36.0 mL/min (>90); GLUCOSE,RANDOM 99.0 mg/dL (70-105); SODIUM SERUM 137.0 mmol/L (136-145); UREA NITROGEN, BLOOD 21.0 mg/dL (7-18)
[2025-05-27] MEDS ORDERED: LIDOCAINE HCL 400MG/20ML VIAL ONE (11:49)
[2025-05-27] MEDS ORDERED: IOHEXOL 350 MG/ML 100ML INFUS..BTL IV ONE (11:50)
[2025-05-27] MEDS ORDERED: NITROGLYCERIN 50MG VIAL ONE (11:50)
[2025-05-27] MEDS ORDERED: HEParin-NS 1,000 UNIT/500 ML 1,000 ML IV ONE (11:50)
[2025-05-27] MEDS ORDERED: VERAPAMIL HCL 2.5 MG/ML VIAL ONE (11:55)
[2025-05-27] MEDS ORDERED: MIDAZOLAM HCL 1 MG/ML 2ML VIAL ONE ×2 (12:35→12:41)
[2025-05-27] MEDS ORDERED: DEXTROSE 50%-WATER 50 ML DISP.SYRIN IV PRN (13:00)
[2025-05-27] MEDS ORDERED: GLUCAGON 1MG KIT 1 MG ML IM PRN (13:00)
[2025-05-27] MEDS: 0.9%NACL 1000ML 1,000 ML IV SCH (13:00)
--- NOTE | 2025-05-27 13:02 | PRN ---
PROCEDURE REPORT DATE OF PROCEDURE: May 27, 2025 BRANCH LENDING MANAGER: [Dexter Jordan MD ] PROCEDURE PERFORMED: Conscious sedation Ultrasound guided right radial artery access Selective left coronary artery angiogram Selective right coronary artery angiogram Left heart catheterization TR band 13 satish over right radial artery INDICATION: NSTEMI DESCRIPTION OF PROCEDURE: After informed consent was obtained, the patient was prepped and draped in the usual sterile fashion. A 6 Frisian arterial sheath was inserted in the right radial artery using ultrasound guidance with first pass wall puncture. The arterial sheath was aspirated and flushed. A 6 Frisian JL 3.5 was then advanced to the ascending aorta over an exchange length J-tip guidewire, was aspirated and flushed, and was used for selective coronary angiograms in multiple obliquities. A JR-4 was advanced in a similar fashion to the ascending aorta over the J-tipped guidewire and was used for selective right coronary angiograms in multiple oblique views with findings as outlined below. The JR-4 catheter advanced into the LV and pressures were obtained with a pull-back across the aortic valve. A TR band was placed over right radial artery. FLUOROSCOPY TIME: 3.4 min LEFT HEART HEMODYNAMICS: LVEDP 22 mm Hg and no gradient Ao CORONARY ANGIOGRAM: LEFT MAIN: Patent and 0% stenosis. Gives rise to LCx and LAD. LEFT ANTERIOR DESCENDING: Large vessel giving rise to two Diagonal branches. There is 20-30% ostial LAD stenosis with NICK 3 flow. Diags are widely patent LEFT CIRCUMFLEX: Large and gives rise to two OM branches. 0% stenosis. RIGHT CORONARY ARTERY: Large, dominant vessel giving rise to PDA and PL branches. 0% stenosis. HEMOSTASIS: TR band 12 satish over right radial artery INTERVENTIONS: None. COMPLICATIONS: None FINDINGS: Normal coronary anatomy and mild non-obstructive CAD. ESTIMATED BLOOD LOSS: 5 cc RECOMMENDATIONS/INSTRUCTIONS: Aggressive risk factor modification. Optimize GDMT CONTRAST DELIVERED TO PATIENT (mL): 40cc MD ORAL Carter JAMES R MD May 27, 2025 13:02
--- NOTE | 2025-05-27 15:55 | PN ---
[facility] CARDIOLOGY PROGRESS NOTE Date Patient Seen: May 27, 2025 Time of Visit: 15:48 Interval History: [ The patient underwent coronary angiogram today that revealed Normal coronary anatomy and mild non-obstructive CAD, patient tolerated the procedure well with no complications , we will recommend GDMT optimization . Physical Examination: General: Alert and oriented. NAD. Chronically ill appearing. HEENT: NC/AT. Oral mucosa is moist. Neck: No masses, mild JVD, Lungs: SCM. Bilateral air entry. Diminished breath sounds noted to the bilateral lower lung tineo. Cardio: Regular rate. Normal S1 and S2. +S4. No obvious murmurs, gallops, or rubs noted. Abdomen: Soft. NT. ND. Normal active bowel sounds x 4 quadrants. Extremities: Diminished throughout. No edema, clubbing, or cyanosis. Neuro: CN II-XII were grossly intact. No focal deficits. Laboratory: [ ] Hematology Labs: Test 05/27/25 03:31 Range/Units White Blood Count 9.6 4.8-10.8 K/uL Red Blood Count 3.58 L 4.00-5.50 MIL/uL Hemoglobin 10.2 L 12.0-16.0 g/dL Hematocrit 30.7 L 36-48 % Mean Corpuscular Volume 85.8 79-99 fL Mean Corpuscular Hemoglobin 28.5 27.0-33.0 pg Mean Corpuscular Hemoglobin Concent 33.2 32.0-36.0 g/dL Red Cell Distribution Width 12.1 11.0-15.5 % Platelet Count 221 130-400 K/uL Mean Platelet Volume 11.6 H 7.5-10.5 fL Immature Granulocyte % (Auto) 0.3 0-1 % Neutrophils (%) (Auto) 57.7 40.0-77.0 % Lymphocytes (%) (Auto) 30.8 21.0-51.0 % Monocytes (%) (Auto) 7.7 3.0-13.0 % Eosinophils (%) (Auto) 3.1 0.0-8.0 % Basophils (%) (Auto) 0.4 0.0-5.0 % Neutrophils # (Auto) 5.5 1.8-7.7 K/uL Lymphocytes # (Auto) 2.9 1.0-4.8 K/uL Monocytes # (Auto) 0.7 0.1-1.0 K/uL Eosinophils # (Auto) 0.30 0.00-0.70 K/uL Basophils # (Auto) 0.04 0.00-0.20 K/uL Absolute Immature Granulocyte (auto 0.03 0-1 K/uL Nucleated Red Blood Cells 0.3 H 0.0-0.19 % Chemistry Labs: Test 05/27/25 15:39 05/27/25 03:31 05/26/25 19:25 05/26/25 18:47 Range/Units Whole Blood Glucose 132 H 70-110 MG/DL Sodium Level 137 136-145 mmol/L Potassium Level 4.0 3.5-5.1 mmol/L Chloride Level 101 101-111 mmol/L Carbon Dioxide Level 22 21-32 mmol/L Blood Urea Nitrogen 21 H 7-18 mg/dL Creatinine 1.5 H 0.5-1.0 mg/dL Glomerular Filtration Rate Calc 36 >90 mL/min Random Glucose 99 70-105 mg/dL Total Calcium 8.6 8.5-10.1 mg/dL Magnesium Level 2.00 1.80-2.40 mg/dL B-Type Natriuretic Peptide 526 H 0-100 pg/mL Troponin I High Sensitivity 1498 *H 4-50 ng/L Test 05/26/25 04:38 Range/Units Total Bilirubin 0.5 0.2-1.0 mg/dL Aspartate Amino Transf (AST/SGOT) 31 10-37 U/L Alanine Aminotransferase (ALT/SGPT) 67 12-78 U/L Alkaline Phosphatase 103 50-136 U/L Total Protein 6.6 6.0-8.3 g/dL Albumin 2.6 L 3.5-5.0 g/dL Coagulation Labs: Test 05/27/25 09:16 Range/Units Activated Partial Thromboplast Time 98.3 #*H 26.3-35.5 SEC Diagnostics / Radiology: [Copy/Paste Echos/Imaging Report here] Impression and Plan: [-ACS-NSTEMI -Bilateral pleural effusions (R>L) -CAP -Acute BiV HFrEF (LVEF: 25-30% with mild-moderately reduced RV systolic function) by echo done 05/24/2025 -Elevated D Dimer, negative for DVT/PE -Paroxysmal atrial fibrillation with RVR -HTN -HLP -DM2 -Normocytic normochromic anemia -CVI s/p venous ablation -Anxiety/depression Plan: 1. ACS-NSTEMI -Cardiac enzymes-HS troponin I: 728>1290>[id number] - Her troponin elevation could be due to her recent cardioversion done on 05-14-25 -Will continue on goal directed ACS treatment which includes aspirin 81 mg daily, clopidogrel 75 mg daily, , metoprolol succinate 25 mg BID, and atorvastatin 40 mg QHS. - The patient underwent coronary angiogram today that revealed Normal coronary anatomy and mild non-obstructive CAD, patient tolerated the procedure well with no complications 2. Acute BiV HFrEF NICM - (LVEF: 25-30%, by echo done 05/24/2025 which is a new drop in her systolic function compared to prior - NYHA II -Compensated and euvolemic on exam -BNP: 3740, admission: 293 -The patient underwent coronary angiogram today that revealed Normal coronary anatomy and mild non-obstructive CAD, patient tolerated the procedure well with no complications -Strict Is and Os with daily weights restrict fluids to less than 1.5L/day. The patient will continue on furosemide 20 mg IV TID -GDMT : Stop lisinopril and Start Entresto 24/26 mg every 12 hrs , if the patients blood pressure allows we will consider initiating Aldactone Continue metoprolol succinate 25 mg BID -We will stop heparin infusion today 3. Paroxysmal atrial fibrillation with RVR s/p cardioversion on 05-14-25 -Substrate: Dilated atria -Continue metoprolol succinate 25 mg BID -CHADS2 VASc score: 6 points. Continue the IV heparin infusion. Once all planned procedures have been performed and prior to discharge, she should be transitioned back to oral anticoagulation with Eliquis 5 mg BID. -Please keep the patient on continuous telemetry monitoring and maintain electrolytes within normal parameters. ] Thank you for this consult , cardiology will continue to follow along. Dexter Jordan MD ATTESTATION BY PHYSICIAN I have seen and examined the patient, reviewed the above documentation, participated in medical decision making, made necessary modifications, and agree with the treatment plan as documented by my mid-level provider above. MD ORAL Priest JAMES R MD May 27, 2025 15:55
--- NOTE | 2025-05-27 17:03 | HMCIMG ---
EXAM: CR Chest, 1 views. CLINICAL HISTORY: Hypoxic respiratory failure. COMPARISON: May 25, 2025. FINDINGS: Mildly progressed bibasilar and hilar infiltration. Mild cardiomegaly with pulmonary venous collection. No pleural effusion or pneumothorax. No acute osseous abnormality. IMPRESSION: Mildly progressed bibasilar and hilar infiltration. Stable mild cardiomegaly with pulmonary venous congestion. No pleural effusion. No pneumothorax. /[place]
--- NOTE | 2025-05-27 21:12 | PN ---
[facility] PROGRESS NOTE Date Patient Seen: May 27, 2025 Time of Visit: 10:00 Supervising Physician:Shravan Pace MD Primary Care Physician: Gavin Guerra MD Outpatient Specialists: [ ] Inpatient Consults: [Dr Fierro PROBLEM LIST: NSTEMI pending 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 He has she has been hemodynamically stable with no major overnight events as per RN. She has been afebrile with a T-max of 98.8 saturating 97% on 2 L via nasal cannula. Urine output of 2 L in last 24 hours with a balance of-1.1 L. white count has normalized H&H is stable 10..7 platelet count is normal. Kidneys slightly improved with a creatinine of 1.5 GFR of 36 glucose of 99 mg/dL. Patient continues on heparin drip per protocol with the latest PTT of 45.4. There is a plan left heart catheterization today per Cardiology team. We will await further recommendations. Patient denies any chest pain palpitations or shortness for breath. She reports sleeping well with the BiPAP overnight. REVIEW OF SYSTEMS: 12 point ROS reviewed with patient. Pertinent positives mentioned above. Otherwise negative. PHYSICAL EXAM: GENERAL: alert, weak, awake oriented x 3 HEENT: EOMI, Sclera non icteric, moist mucosa NECK: Supple, no JVD, trachea midline LUNGS: diminished breath sounds bilaterally. No wheezes HEART: Regular rate and rhythm. Normal S1 and S2, without murmurs ABD: Abdomen soft, nontender. Bowel sounds present EXT: No clubbing cyanosis or edema NEURO: Alert and oriented to person, follows commands Vital Signs (last 8hr) Date Time Temp Pulse Resp B/P (MAP) Pulse Ox O2 Delivery O2 Flow Rate FiO2 05/27/25 19:40 84 18 N/Cannula Low lpm 2.0 28 05/27/25 19:32 98.4 82 21 118/66 97 Room Air 05/27/25 17:15 74 110/55 99 Room Air 05/27/25 16:15 75 115/66 98 Room Air 05/27/25 15:15 78 109/55 98 Room Air 05/27/25 15:00 80 18 N/Cannula Low lpm 2.0 28 05/27/25 14:45 72 102/55 98 Room Air 05/27/25 14:15 78 118/63 97 Room Air 05/27/25 14:00 75 109/53 98 Room Air 05/27/25 13:45 70 135/56 98 Room Air 05/27/25 13:30 78 144/56 97 Room Air 05/27/25 13:15 98.8 84 16 115/64 98 Room Air LABS: Hematology Labs: Test 05/27/25 03:31 Range/Units White Blood Count 9.6 4.8-10.8 K/uL Red Blood Count 3.58 L 4.00-5.50 MIL/uL Hemoglobin 10.2 L 12.0-16.0 g/dL Hematocrit 30.7 L 36-48 % Mean Corpuscular Volume 85.8 79-99 fL Mean Corpuscular Hemoglobin 28.5 27.0-33.0 pg Mean Corpuscular Hemoglobin Concent 33.2 32.0-36.0 g/dL Red Cell Distribution Width 12.1 11.0-15.5 % Platelet Count 221 130-400 K/uL Mean Platelet Volume 11.6 H 7.5-10.5 fL Immature Granulocyte % (Auto) 0.3 0-1 % Neutrophils (%) (Auto) 57.7 40.0-77.0 % Lymphocytes (%) (Auto) 30.8 21.0-51.0 % Monocytes (%) (Auto) 7.7 3.0-13.0 % Eosinophils (%) (Auto) 3.1 0.0-8.0 % Basophils (%) (Auto) 0.4 0.0-5.0 % Neutrophils # (Auto) 5.5 1.8-7.7 K/uL Lymphocytes # (Auto) 2.9 1.0-4.8 K/uL Monocytes # (Auto) 0.7 0.1-1.0 K/uL Eosinophils # (Auto) 0.30 0.00-0.70 K/uL Basophils # (Auto) 0.04 0.00-0.20 K/uL Absolute Immature Granulocyte (auto 0.03 0-1 K/uL Nucleated Red Blood Cells 0.3 H 0.0-0.19 % Chemistry Labs: Test 05/27/25 19:24 05/27/25 03:31 05/26/25 19:25 05/26/25 18:47 Range/Units Whole Blood Glucose 166 H 70-110 MG/DL Sodium Level 137 136-145 mmol/L Potassium Level 4.0 3.5-5.1 mmol/L Chloride Level 101 101-111 mmol/L Carbon Dioxide Level 22 21-32 mmol/L Blood Urea Nitrogen 21 H 7-18 mg/dL Creatinine 1.5 H 0.5-1.0 mg/dL Glomerular Filtration Rate Calc 36 >90 mL/min Random Glucose 99 70-105 mg/dL Total Calcium 8.6 8.5-10.1 mg/dL Magnesium Level 2.00 1.80-2.40 mg/dL B-Type Natriuretic Peptide 526 H 0-100 pg/mL Troponin I High Sensitivity 1498 *H 4-50 ng/L Test 05/26/25 04:38 Range/Units Total Bilirubin 0.5 0.2-1.0 mg/dL Aspartate Amino Transf (AST/SGOT) 31 10-37 U/L Alanine Aminotransferase (ALT/SGPT) 67 12-78 U/L Alkaline Phosphatase 103 50-136 U/L Total Protein 6.6 6.0-8.3 g/dL Albumin 2.6 L 3.5-5.0 g/dL Coagulation Labs: Test 05/27/25 15:40 Range/Units Activated Partial Thromboplast Time 54.9 #H 26.3-35.5 [facility] DIAGNOSTICS / RADIOLOGY RESULTS: [ ] PLAN continue PCCU status continue cardiac monitoring BIPAP PRN and HS wean o2 as possible to maintain o2 sat above 92% Follow cardiology recommendations-plans for C Heparin drip per protocol Aspirin 325 mg x 1 then 81 mg daily Statin 40 mg q hs Plavix 75 mg daily Metoprolol Lisinopril Zosyn 3.375 GM IV Q 8 HOURS Doxycycline 100 MG IV Q 12 Glucometer checks AC/HS w/ regular insulin SS Resume levothyroxine Protonix 40 mg daily for PUD prophylaxis Repeat am Labs Hold lasix light hydration with NS at 50 ml/hr. NEURO: Minimize central acting medications as possible. Maintain fall precautions, adequate lighting during the day PULMONARY: Supplemental 02 as needed. Maintain aspiration precautions at all times CARDIOVASCULAR: Follow hemodynamics. Vital signs per facility protocol GI & NUTRITION: Continue with nutritional support. Continue stool softeners and laxatives as needed. KIDNEYS & ELECTROLYTES: Strict monitoring of intake, output and overall fluid balance. Avoid nephrotoxic medications to the extent possible. Medications to be dosed according to renal function. Monitor electrolytes and replace as needed ENDOCRINE: Maintain blood glucose between 100-180 at all times. Hypoglycemia protocol in place INFECTIOUS DISEASE: Trend temperature, WBC and procalcitonin level Follow cultures, deescalate antibiotics as soon as possible. Panculture if new onset fever ONCOLOGY/HEMATOLOGY/COAGULATION: Monitor for s/s of bleeding Monitor hemoglobin, coagulation studies as needed SKIN: Pressure ulcer prevention per facility protocol Specialty mattress ORTHO/REHAB: Continue PT/OT Prophylaxis: Continue GI and DVT prophylaxis Code Status: Full Resuscitation Disposition: TBD ATTESTATION BY PHYSICIAN I reviewed the documentation, medical decision making, and treatment plan as noted by the mid-level provider above. I agree with the findings and plan of care. Shravan Pace MD, [facility] May 27, 2025 21:12
[2025-05-27] MEDS: SACUBITRIL/VALSARTAN 1 EACH TABLET PO SCH (21:18)
[2025-05-28 03:45] VITALS: BP 125/60; PULSE 77; RESP 20; TEMP 98
[2025-05-28 05:30] LABS: IMMATURE GRANULOCYTE ABSOLUTE 0.02 K/uL (0-1); NUCLEATED RED BLOOD CELLS 0.0 % (0.0-0.19); PLATELET COUNT (AUTO) 256 K/uL (130-400); RED BLOOD CELL COUNT(AUTO) 3.72 MIL/uL (4.00-5.50); RED CELL DISTRIBUTION WIDTH 12.0 % (11.0-15.5); WHITE BLOOD COUNT (AUTO) 9.3 K/uL (4.8-10.8)
[2025-05-28 07:20] VITALS: O2SAT 100
[2025-05-28 07:58] VITALS: BP 140/74; PULSE 69; RESP 16; TEMP 98
[2025-05-28] MEDS: SPIRONOLACTONE 25 MG TAB PO SCH (08:28)
--- NOTE | 2025-05-28 09:00 | PN ---
[facility] CARDIOLOGY PROGRESS NOTE Date Patient Seen: May 28, 2025 Time of Visit: 08:55 Interval History: [ She underwent coronary angiogram yesterday that showed mild non obstructive CAD , patient currently denies any cardiac symptoms or anginal equivalents. Physical Examination: General: Alert and oriented. NAD. Chronically ill appearing. HEENT: NC/AT. Oral mucosa is moist. Neck: No masses, mild JVD, Lungs: SCM. Bilateral air entry. Diminished breath sounds noted to the bilateral lower lung tineo. Cardio: Regular rate. Normal S1 and S2. +S4. No obvious murmurs, gallops, or rubs noted. Abdomen: Soft. NT. ND. Normal active bowel sounds x 4 quadrants. Extremities: Diminished throughout. No edema, clubbing, or cyanosis. Neuro: CN II-XII were grossly intact. No focal deficits. Laboratory: [ ] Hematology Labs: Test 05/28/25 05:25 Range/Units White Blood Count 9.3 4.8-10.8 K/uL Red Blood Count 3.72 L 4.00-5.50 MIL/uL Hemoglobin 10.9 L 12.0-16.0 g/dL Hematocrit 32.0 L 36-48 % Mean Corpuscular Volume 86.0 79-99 fL Mean Corpuscular Hemoglobin 29.3 27.0-33.0 pg Mean Corpuscular Hemoglobin Concent 34.1 32.0-36.0 g/dL Red Cell Distribution Width 12.0 11.0-15.5 % Platelet Count 256 130-400 K/uL Mean Platelet Volume 11.0 H 7.5-10.5 fL Immature Granulocyte % (Auto) 0.2 0-1 % Neutrophils (%) (Auto) 63.6 40.0-77.0 % Lymphocytes (%) (Auto) 26.0 21.0-51.0 % Monocytes (%) (Auto) 5.7 3.0-13.0 % Eosinophils (%) (Auto) 4.1 0.0-8.0 % Basophils (%) (Auto) 0.4 0.0-5.0 % Neutrophils # (Auto) 5.9 1.8-7.7 K/uL Lymphocytes # (Auto) 2.4 1.0-4.8 K/uL Monocytes # (Auto) 0.5 0.1-1.0 K/uL Eosinophils # (Auto) 0.38 0.00-0.70 K/uL Basophils # (Auto) 0.04 0.00-0.20 K/uL Absolute Immature Granulocyte (auto 0.02 0-1 K/uL Nucleated Red Blood Cells 0.0 0.0-0.19 % Chemistry Labs: Test 05/28/25 05:33 05/28/25 05:25 05/27/25 03:31 05/26/25 19:25 Range/Units Whole Blood Glucose 96 70-110 MG/DL Magnesium Level 1.80 1.80-2.40 mg/dL Sodium Level 137 136-145 mmol/L Potassium Level 4.0 3.5-5.1 mmol/L Chloride Level 101 101-111 mmol/L Carbon Dioxide Level 22 21-32 mmol/L Blood Urea Nitrogen 21 H 7-18 mg/dL Creatinine 1.5 H 0.5-1.0 mg/dL Glomerular Filtration Rate Calc 36 >90 mL/min Random Glucose 99 70-105 mg/dL Total Calcium 8.6 8.5-10.1 mg/dL B-Type Natriuretic Peptide 526 H 0-100 pg/mL Test 05/26/25 18:47 Range/Units Troponin I High Sensitivity 1498 *H 4-50 ng/L Coagulation Labs: Test 05/27/25 15:40 Range/Units Activated Partial Thromboplast Time 54.9 #H 26.3-35.5 [facility] Diagnostics / Radiology: [Copy/Paste Echos/Imaging Report here] Impression and Plan: [-ACS-NSTEMI -Bilateral pleural effusions (R>L) -CAP -Acute BiV HFrEF (LVEF: 25-30% with mild-moderately reduced RV systolic function) by echo done 05/24/2025 -Elevated D Dimer, negative for DVT/PE -Paroxysmal atrial fibrillation with RVR -HTN -HLP -DM2 -Normocytic normochromic anemia -CVI s/p venous ablation -Anxiety/depression Plan: 1. ACS-NSTEMI -Cardiac enzymes-HS troponin I: 728>1290>2348>3698>3839 - Her troponin elevation could be due to her recent cardioversion done on 05-14-25 -Will continue on goal directed ACS treatment which includes aspirin 81 mg daily, clopidogrel 75 mg daily, , metoprolol succinate 25 mg BID, and atorvastatin 40 mg QHS. - The patient underwent coronary angiogram showed mild non-obstructive CAD 2. Acute BiV HFrEF NICM - (LVEF: 25-30%, by echo done 05/24/2025 which is a new drop in her systolic function compared to prior - NYHA II -Compensated and euvolemic on exam -BNP: 3740, admission: 293 -The patient underwent coronary angiogram today that revealed Normal coronary anatomy and mild non-obstructive CAD, patient tolerated the procedure well with no complications -Strict Is and Os with daily weights restrict fluids to less than 1.5L/day. The patient will continue on furosemide 20 mg IV TID -GDMT : Continue Entresto 24/26 mg every 12 hrs and metoprolol succinate 25 mg BID -Start Aldactone 25 mg daily -We will recommend the patient ambulates the halls , and her blood pressure is stable with no symptoms she can be discharged in the next 24 hrs , with follow up in cardiology clinic 1-2 weeks after discharge 3. Paroxysmal atrial fibrillation with RVR s/p cardioversion on 05-14-25 -Substrate: Dilated atria -Continue metoprolol succinate 25 mg BID -CHADS2 VASc score: 6 points. Eliquis 5 mg BID. -Please keep the patient on continuous telemetry monitoring and maintain electrolytes within normal parameters. ] Dexter Jordan MD ATTESTATION BY PHYSICIAN I have seen and examined the patient, reviewed the above documentation, participated in medical decision making, made necessary modifications, and agree with the treatment plan as documented by my mid-level provider above. MD ORAL Priest JAMES R MD May 28, 2025 09:00
[2025-05-28 12:17] VITALS: BP 140/72; PULSE 75; RESP 16; TEMP 98.7
--- NOTE | 2025-05-28 14:19 | HMCIMG ---
EXAM: CR Chest, 1 views. CLINICAL HISTORY: Cough. COMPARISON: 05/24/2025 FINDINGS: Patch of consolidation is seen in right lower zone. No pleural effusion or pneumothorax. Cardiomegaly is noted. No acute osseous abnormality. IMPRESSION: Patch of consolidation is seen in right lower zone. Cardiomegaly is noted. /[place]
--- NOTE | 2025-05-28 15:25 | PN ---
[facility] PROGRESS NOTE Date Patient Seen: May 28, 2025 Time of Visit: 15:24 Supervising Physician: [ ] Primary Care Physician: Gavin Guerra MD Outpatient Specialists: [ ] Inpatient Consults: [Dr Fierro PROBLEM LIST: NSTEMI pending [facility] for today Acute in chronic combined Heart failure w/ EF 25-30% on echo, improved Community Acquired Pneumonia DICKSON on CKD ST 2 GFR 53ML/MIN 2/2 to INDY Anemia of chronic disease Type 2 DM w Hyperglycemia Essential Hypertension Hyperlipidemia HX of A-Fib- on Eliquis - recent cardioversion 05-21-25 (Dr Fierro) Hypothyroidism INTERVAL HISTORY: Patient is awake alert and oriented x3. He has she has been hemodynamically stable with no major overnight events as per RN. She has been afebrile with a T-max of 98.8 saturating 97% on 2 L via nasal cannula. Urine output of 2 L in last 24 hours with a balance of-1.1 L. white count has normalized H&H is stable 10.2.7 platelet count is normal. Kidneys slightly improved with a creatinine of 1.5 GFR of 36 glucose of 99 mg/dL. Patient continues on heparin drip per protocol with the latest PTT of 45.4. There is a plan left heart catheterization today per Cardiology team. We will await further recommendations. Patient denies any chest pain palpitations or shortness for breath. She reports sleeping well with the BiPAP overnight. REVIEW OF SYSTEMS: 12 point ROS reviewed with patient. Pertinent positives mentioned above. Otherwise negative. PHYSICAL EXAM: GENERAL: alert, weak, awake oriented x 3 HEENT: EOMI, Sclera non icteric, moist mucosa NECK: Supple, no JVD, trachea midline LUNGS: diminished breath sounds bilaterally. No wheezes HEART: Regular rate and rhythm. Normal S1 and S2, without murmurs ABD: Abdomen soft, nontender. Bowel sounds present EXT: No clubbing cyanosis or edema NEURO: Alert and oriented to person, follows commands Vital Signs (last 8hr) Date Time Temp Pulse Resp B/P (MAP) Pulse Ox O2 Delivery O2 Flow Rate FiO2 05/28/25 12:17 98.8 75 16 140/72 98 Room Air 05/28/25 07:58 98.1 69 16 140/74 100 Room Air LABS: Hematology Labs: Test 05/28/25 05:25 Range/Units White Blood Count 9.3 4.8-10.8 K/uL Red Blood Count 3.72 L 4.00-5.50 MIL/uL Hemoglobin 10.9 L 12.0-16.0 g/dL Hematocrit 32.0 L 36-48 % Mean Corpuscular Volume 86.0 79-99 fL Mean Corpuscular Hemoglobin 29.3 27.0-33.0 pg Mean Corpuscular Hemoglobin Concent 34.1 32.0-36.0 g/dL Red Cell Distribution Width 12.0 11.0-15.5 % Platelet Count 256 130-400 K/uL Mean Platelet Volume 11.0 H 7.5-10.5 fL Immature Granulocyte % (Auto) 0.2 0-1 % Neutrophils (%) (Auto) 63.6 40.0-77.0 % Lymphocytes (%) (Auto) 26.0 21.0-51.0 % Monocytes (%) (Auto) 5.7 3.0-13.0 % Eosinophils (%) (Auto) 4.1 0.0-8.0 % Basophils (%) (Auto) 0.4 0.0-5.0 % Neutrophils # (Auto) 5.9 1.8-7.7 K/uL Lymphocytes # (Auto) 2.4 1.0-4.8 K/uL Monocytes # (Auto) 0.5 0.1-1.0 K/uL Eosinophils # (Auto) 0.38 0.00-0.70 K/uL Basophils # (Auto) 0.04 0.00-0.20 K/uL Absolute Immature Granulocyte (auto 0.02 0-1 K/uL Nucleated Red Blood Cells 0.0 0.0-0.19 % Chemistry Labs: Test 05/28/25 11:15 05/28/25 05:25 05/27/25 03:31 05/26/25 19:25 Range/Units Whole Blood Glucose 134 H 70-110 MG/DL Magnesium Level 1.80 1.80-2.40 mg/dL Sodium Level 137 136-145 mmol/L Potassium Level 4.0 3.5-5.1 mmol/L Chloride Level 101 101-111 mmol/L Carbon Dioxide Level 22 21-32 mmol/L Blood Urea Nitrogen 21 H 7-18 mg/dL Creatinine 1.5 H 0.5-1.0 mg/dL Glomerular Filtration Rate Calc 36 >90 mL/min Random Glucose 99 70-105 mg/dL Total Calcium 8.6 8.5-10.1 mg/dL B-Type Natriuretic Peptide 526 H 0-100 pg/mL Test 05/26/25 18:47 Range/Units Troponin I High Sensitivity 1498 *H 4-50 ng/L Coagulation Labs: Test 05/27/25 15:40 Range/Units Activated Partial Thromboplast Time 54.9 #H 26.3-35.5 [facility] DIAGNOSTICS / RADIOLOGY RESULTS: [ ] PLAN continue PCCU status continue cardiac monitoring BIPAP PRN and HS wean o2 as possible to maintain o2 sat above 92% Follow cardiology recommendations-plans for [facility] Heparin drip per protocol Aspirin 325 mg x 1 then 81 mg daily Statin 40 mg q hs Plavix 75 mg daily Metoprolol Lisinopril Zosyn 3.375 GM IV Q 8 HOURS Doxycycline 100 MG IV Q 12 Glucometer checks AC/HS w/ regular insulin SS Resume levothyroxine Protonix 40 mg daily for PUD prophylaxis Repeat am Labs Hold lasix light hydration with NS at 50 ml/hr. NEURO: Minimize central acting medications as possible. Maintain fall precautions, adequate lighting during the day PULMONARY: Supplemental 02 as needed. Maintain aspiration precautions at all times CARDIOVASCULAR: Follow hemodynamics. Vital signs per facility protocol GI & NUTRITION: Continue with nutritional support. Continue stool softeners and laxatives as needed. KIDNEYS & ELECTROLYTES: Strict monitoring of intake, output and overall fluid balance. Avoid nephrotoxic medications to the extent possible. Medications to be dosed according to renal function. Monitor electrolytes and replace as needed ENDOCRINE: Maintain blood glucose between 100-180 at all times. Hypoglycemia protocol in place INFECTIOUS DISEASE: Trend temperature, WBC and procalcitonin level Follow cultures, deescalate antibiotics as soon as possible. Panculture if new onset fever ONCOLOGY/HEMATOLOGY/COAGULATION: Monitor for s/s of bleeding Monitor hemoglobin, coagulation studies as needed SKIN: Pressure ulcer prevention per facility protocol Specialty mattress ORTHO/REHAB: Continue PT/OT Prophylaxis: Continue GI and DVT prophylaxis Code Status: Full Resuscitation Disposition: KALYN AVALOS AGACNP May 28, 2025 15:25
[2025-05-28 15:59] VITALS: BP 143/69; PULSE 74; RESP 16; TEMP 99.2
--- NOTE | 2025-05-28 16:49 | DS ---
[facility] DISCHARGE SUMMARY Date Patient Seen: May 28, 2025 Time of Visit: 16:49 Supervising Physician: Dr. 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 Advanced diagnostic tests was a left-sided heart catheterization on 05/27/2025. The results indicated that the patient had no occlusions on cardiac arteries. Cardiology then adjusted patient's medications to address atrial fibrillation with RVR. Patient was started on a loading dose and transitioned to the following: Eliquis 5 mg p.o. b.i.d., 30 days, 60 tablets. Aspirin enteric coated 81 mg p.o. daily, 30 days, 30 tablets Atorvastatin calcium 40 mg p.o. q.h.s., 30 days, 30 tablets. Metoprolol titrate 25 mg p.o. b.i.d. 30, 60 tablets. Spironolactone 25 mg p.o. daily, 30 days, 30 tablets. Antibiotics for community-acquired pneumonia. Doxycycline 100 mg p.o. b.i.d., seven days, 14 tablets Augmentin 875/125 mg p.o. b.i.d. seven days, 14 tablets HPI (per admitting provider) Mrs. Lori Villareal is a 74 YEAR OLD FEMALE WITH A PAST MEDICAL HISTORY of diabetes, hypertension, hyperlipidemia, CKD, AFib with a recent cardioversion last Saturday at Dr. Fierro's office presents to the emergency room with a chief complaint of fevers, chills, or general body weakness with an onset of this morning. Patient reports she woke up this morning and felt very weak and ill. She reports she went up to go to the bathroom and she was having a difficult time holding herself up. She notified her family and they brought her in for further evaluation. 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 Patient continues taking her Eliquis as prescribed. Patient denies fevers however reports chills, shortness for breath. Patient denies chest pain, nausea, vomiting, abdominal pain. Admission vital signs are temperature 100.2 C, heart rate 71 beats per minute, respiratory rate 20 4 beats per minute, blood pressure 126/78, O2 sat 98% on 2 L nasal cannula. Admission labs show anemia of chronic disease an H&H of 10.4/30.9, elevated creatinine of 1.1 with GFR of 53 mL/minute, elevated troponin of 728, 12 lead EKG shows an abnormal T-wave, consider ischemia. Chest x-ray shows infiltrates as well as pulmonary edema. Patient will be admitted for non-STEMI, community-acquired pneumonia, acute hypoxemic respiratory failure secondary to pulmonary edema. 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 A 6 Singaporean arterial sheath was inserted in the right radial artery using ultrasound guidance with first pass wall puncture. The arterial sheath was aspirated and flushed. A 6 Singaporean JL 3.5 was then advanced to the ascending aorta over an exchange length J-tip guidewire, was aspirated and flushed, and was used for selective coronary angiograms in multiple obliquities. A JR-4 was advanced in a similar fashion to the ascending aorta over the J-tipped guidewire and was used for selective right coronary angiograms in multiple oblique views with findings as outlined below. The JR-4 catheter advanced into the LV and pressures were obtained with a pull-back across the aortic valve. A TR band was placed over right radial artery. FLUOROSCOPY TIME: 3.4 min LEFT HEART HEMODYNAMICS: LVEDP 22 mm Hg and no gradient Ao CORONARY ANGIOGRAM: LEFT MAIN: Patent and 0% stenosis. Gives rise to LCx and LAD. LEFT ANTERIOR DESCENDING: Large vessel giving rise to two Diagonal branches. There is 20-30% ostial LAD stenosis with NICK 3 flow. Diags are widely patent LEFT CIRCUMFLEX: Large and gives rise to two OM branches. 0% stenosis. RIGHT CORONARY ARTERY: Large, dominant vessel giving rise to PDA and PL branches. 0% stenosis. HEMOSTASIS: TR band 12 satish over right radial artery INTERVENTIONS: None. COMPLICATIONS: None FINDINGS: Normal coronary anatomy and mild non-obstructive CAD. ESTIMATED BLOOD LOSS: 5 cc RECOMMENDATIONS/INSTRUCTIONS: Aggressive risk factor modification. Optimize GDMT CONTRAST DELIVERED TO PATIENT (mL): 40cc MD ORAL Carter JAMES R MD May 27, 2025 13:02 DISCHARGE MEDICATIONS: Pt hemodynamically stable and afebrile at time of discharge. PCP notified of patients admission, hospital course and discharge. PHYSICAL EXAM: GENERAL: alert, weak, awake oriented x 3 HEENT: EOMI, Sclera non icteric, moist mucosa NECK: Supple, no JVD, trachea midline LUNGS: diminished breath sounds bilaterally. No wheezes HEART: Regular rate and rhythm. Normal S1 and S2, without murmurs ABD: Abdomen soft, nontender. Bowel sounds present EXT: No clubbing cyanosis or edema NEURO: Alert and oriented to person, follows commands FOLLOW-UP: Dr. Gavin Guerra Follow-up with PCP in 2-[address] Dexter Jordan, [facility], 1-2 weeks after discharge. RECOMMENDATIONS: See Discharge Instructions This case was seen and discussed with my supervising physician. More than 50 minutes spent on discharge process, including evaluation of the patient, discussion with nursing staff, medication reconciliation and follow-up appointments KALYN VELÁZQUEZ AGACNP May 28, 2025 16:49
--- NOTE | 2025-05-28 18:05 | NUR ---
PT WAS DISCHARGED AFTER GIVING INSTRUCTIONS ON APPOINTMENTS AND MEDS.
--- NOTE | 2025-05-29 06:29 | HMCIMG ---
EXAM: CR Chest, 1 View. CLINICAL HISTORY: hypoxic resp failure COMPARISON: 05/27/2025 FINDINGS: LUNGS: Persistent grossly unchanged bibasilar airspace disease. PLEURAL SPACES: No evidence of pleural effusion or pneumothorax. MEDIASTINUM: Cardiac size is stable. Atherosclerotic aortic arch. BONES: No acute osseous abnormality. IMPRESSION: Persistent bibasilar airspace disease, unchanged. No significant interval changes as compared to the prior. /Montalba
== END 2025-05-28 18:05 | disposition home or self-care (01) | DRG 280 ==
LOC: EDH 12:49 → EDHIP 14:22 → 2AH 17:09
PROVIDERS: ADMIT Internal Medicine Critical Care Medicine; ATTEND Internal Medicine Critical Care Medicine
PROC: 5A09357 Assistance with Respiratory Ventilation, Less than 24 Consecutive Hours, Continuous Positive Airway Pressure (ICD-10-PCS; 2025-05-25)
PROC: 4A023N7 Measurement of Cardiac Sampling and Pressure, Left Heart, Percutaneous Approach (ICD-10-PCS; principal; 2025-05-27)
PROC: B2111ZZ Fluoroscopy of Multiple Coronary Arteries using Low Osmolar Contrast (ICD-10-PCS; 2025-05-27)
DX: I21.4 Non-ST elevation (NSTEMI) myocardial infarction (principal); I50.43 Acute on chronic combined systolic (congestive) and diastolic (congestive) heart failure; J96.01 Acute respiratory failure with hypoxia; J18.9 Pneumonia, unspecified organism; R65.11 Systemic inflammatory response syndrome (SIRS) of non-infectious origin with acute organ dysfunction; I13.0 Hypertensive heart and chronic kidney disease with heart failure and stage 1 through stage 4 chronic kidney disease, or unspecified chronic kidney disease; N17.9 Acute kidney failure, unspecified; D63.1 Anemia in chronic kidney disease; E11.65 Type 2 diabetes mellitus with hyperglycemia; Z79.01 Long term (current) use of anticoagulants; Z79.02 Long term (current) use of antithrombotics/antiplatelets; E03.9 Hypothyroidism, unspecified; F32.A Depression, unspecified; I48.91 Unspecified atrial fibrillation; E78.5 Hyperlipidemia, unspecified; N18.2 Chronic kidney disease, stage 2 (mild); E11.22 Type 2 diabetes mellitus with diabetic chronic kidney disease; I48.0 Paroxysmal atrial fibrillation; F41.9 Anxiety disorder, unspecified; I25.10 Atherosclerotic heart disease of native coronary artery without angina pectoris; I25.2 Old myocardial infarction; Z79.82 Long term (current) use of aspirin; Z79.899 Other long term (current) drug therapy
CPT/HCPCS: 36415; 36600; 71045; 71270; 80048; 80053; 80061; 80076; 82550; 82803; 82948; 83036; 83605; 83735; 83880; 84100; 84145; 84443; 84484; 85025; 85027; 85347; 85378; 85610; 85730; 87040; 87426; 87804; 93005; 93306; 93356; 93458; 93970; 94640; 94660; 94664; 96365; 96366; 99156; 99157; 99285; C1769; G0378; J0282; J0456; J0696; J1644; J1815; J1938; J2250; J2270; J2405; J2470; J2543; J3010; J3475; J3490; J7060; Q9967; C1894; J0283; Q9965